=== PATIENT | female | born 1975 | race Caucasian/White ===

== ENCOUNTER 2017-01-11 00:19 | Inpatient (IN) | payer OTHER ==
--- NOTE | 2017-01-11 00:30 | PDOC ---
History of Present Illness - General Chief Complaint: Chest Pain Stated Complaint: GERD Time Seen by Provider: 01/11/17 00:21 - History of Present Illness Initial Comments: This 41-year-old woman with a history of epigastric pain intermittently for the last year(has been taking Prilosec/Pepcid for that period of time) presents with 1 day history of more severe epigastric pain. 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 She has had no follow-up with general doctor or director non profit. This morning, she forgot to take her medications. She began to have epigastric discomfort and subsequently took her medications in mid morning. Despite this, she continued to have pain and developed nausea. She has vomited approximately 5 times throughout the day. She states that she has had no coffee ground or bright blood in her emesis. There has been no diarrhea, passing normal bowel movement this morning. She describes the pain as steady from mid upper epigastrium radiating to mid back. Patient notes that she had very similar severe pain while traveling one week ago ; she did not seek medical care and the pain eventually subsided. No history of gallbladder disease/pancreatitis. No history of intra-abdominal surgical procedures. Patient denies chest pain/shortness of breath/diaphoresis. No history of smoking or significant family history of coronary artery disease Patient denies alcohol use No history of HTN/DM/hyperlipidemia LMP currently Past History - Past Medical History Allergies/Adverse Reactions: Allergies Allergy/AdvReac Type Severity Reaction Status Date / Time No Known Allergies Allergy Unverified 01/11/17 00:26 Home Medications: Ambulatory Orders Famotidine [Pepcid] 20 mg PO DAILY 01/11/17 Omeprazole Magnesium [Prilosec] 20 mg PO DAILY 01/11/17 Review of Systems - Review of Systems Able to Perform ROS?: Yes Comments:: 12 point review of systems is negative except for what is noted in the history of present illness *Physical Exam - Physical Exam Comments: GENERAL: The patient is awake, alert, and fully oriented, in mild distress secondary to epigastric pain Vital signs as noted. HEAD: Normal with no signs of trauma. EYES: Pupils equal, round and reactive to light, extraocular movements intact, sclera anicteric, conjunctiva clear with no pallor. ENT: moist mucous membranes. Ears normal, nares patent, oropharynx clear without exudates. NECK: Normal range of motion, supple without lymphadenopathy, JVD, or masses. LUNGS: Breath sounds equal, clear to auscultation bilaterally. No wheeze/ crackles. HEART: Regular rate and rhythm, normal S1 and S2 without murmur or rub. ABDOMEN: Soft/nondistended. BS wnl.moderate epigastric tenderness. No guarding or rebound. No palpable masses. No hepatosplenomegaly. EXTREMITIES: Normal range of motion, no edema. No clubbing or cyanosis. No cords, erythema, or tenderness. NEUROLOGICAL: Cranial nerves II through XII grossly intact. Normal speech, normal gait. PSYCH: Normal mood, normal affect. SKIN: Warm, Dry, normal turgor, no rashes or lesions noted. twelve-lead electrocardiogram performed and interpreted : normal sinus rhythm at 81 bpm; incomplete right bundle branch block; otherwise, wave forms, intervals, axis normal. No evidence of acute ST or T wave abnormalities ED Treatment Course - LABORATORY CBC & Chemistry Diagram: 01/11/17 01:29 01/11/17 01:29 Progress Note - Progress Note Progress Note: CBC/chemistry profile/lipase/cardiac enzymes sent Patient given 40 mg Protonix IV/Zofran 4 mg IV/Pepcid 20 mg IV and 1 L normal saline intravenously. Patient asked for medication for pain and 1 g of acetaminophen given IV. Laboratory evaluation significant for lipase of 26,506; Chemistry profile shows normal electrolytes; BUN is 10 with a creatinine of 0.6. Random glucose is 180. Total bilirubin is 2.2; AST is 843/ALT 552/alkaline phosphatase 220 White blood cell count 11,200; remainder of CBC is essentially normal. Cardiac enzymes are not elevated. Clinical presentation most consistent with acute pancreatitis, likely of biliary origin. Abdominal/pelvic CT with contrast will be performed Dilaudid 1mg IV given for analgesia Medical Decision Making - Medical Decision Making 01/11/17 04:21 Abdominal /Pelvic CT performed. Patient reports some relief in pain but has persistent nausea(She has not vomited since presenting to ER) Additional 4mg Zofran IV given IV NS continues(1200ml thus far) 01/11/17 04:51 CT interpreted by Imaging system consultant: Distended gallbladder with abnormal GB wall thickening Moderate peripancreatic fluid Dilation of CBD(7mm) Results discussed with patient who understands and agrees to plan for admission Because the patient had only minimal elevation of WBC and no fever, although gallbladder wall is thickened,antibiotics will not be given at this time 01/11/17 05:[address] Tolliver of [facility] Patient will be admitted to Med/Surg here . Lactic Acid level will be drawn. 01/11/17 06:15 pCXR shows no evidence of acute disease *DC/Admit/Observation/Transfer Diagnosis at time of Disposition: Acute biliary pancreatitis - Discharge Dispostion Condition at time of disposition: Stable Admit: Yes
[2017-01-11] MEDS ORDERED: ONDANSETRON 4 MG/2 ML VIAL IVPUSH ONE ×2 (01:13→04:19)
[2017-01-11] MEDS ORDERED: FAMOTIDINE 20 MG/50 ML IVPB 50 ML IVPB ONE ×2 (01:14→01:25)
[2017-01-11] MEDS ORDERED: PANTOPRAZOLE SODIUM 40 MG in SODIUM CHLORIDE 100 ML IVPB ONE (01:15)
[2017-01-11] MEDS ORDERED: SODIUM CHLORIDE 1,000 ML IV STA ×2 (01:15→03:00)
[2017-01-11] MEDS ORDERED: ONDANSETRON 4 MG/2 ML VIAL ONE ×2 (01:15→04:21)
[2017-01-11] MEDS ORDERED: PANTOPRAZOLE SODIUM 40 MG VIAL ONE (01:25)
[2017-01-11] MEDS ORDERED: ACETAMINOPHEN 1000 MG/100 ML VIAL (NON FORMULARY) IVPB ONE (02:03)
[2017-01-11] MEDS ORDERED: ACETAMINOPHEN INJECTION 100 ML IVPB ONE (02:04)
[2017-01-11 02:21] LABS: BASOPHIL 0.1 % (0-2.0); MCH 27.7 pg (25.7-33.7); MCHC 33.8 g/dl (32.0-36.0); MEAN PLT VOLUME 10.4 fl (7.5-11.1); NEUTROPHILS 89.4 % (42.8-82.8); PLATELET COUNT 209 K/MM3 (134-434); RDW 12.7 % (11.6-15.6); WHITE BLOOD COUNT 11.2 K/mm3 (4.0-10.0)
[2017-01-11 02:32] LABS: ALK PHOS 220 U/L (45-117); ANION GAP 11 (8-16); BILIRUBIN,TOTAL 2.2 mg/dL (0.2-1.0); CALCIUM 9.1 mg/dL (8.5-10.1); CO2 27 mmol/L (21-32); CREATININE 0.7 mg/dL (0.55-1.02); GLUCOSE,RANDOM 180 mg/dL (74-106); TOT PROT 7.2 g/dl (6.4-8.2); TROPONIN I < 0.02 ng/ml (0.00-0.05)
[2017-01-11 02:44] LABS: SGOT/AST 843 U/L (15-37); SGPT/ALT 552 U/L (12-78)
[2017-01-11] MEDS ORDERED: HYDROmorphone HCL CARPU-JECT 1 MG/1 ML DISP.SYRIN IVPUSH ONE (03:00)
[2017-01-11] MEDS ORDERED: HYDROmorphone HCL CARPU-JECT 2 MG/1 ML DISP.SYRIN ONE (03:03)
[2017-01-11] MEDS ORDERED: SODIUM CHLORIDE 1,000 ML IV SCH (05:45)
[2017-01-11 06:36] LABS: URINE APPEARANCE CLEAR; URINE BILIRUBIN NEGATIVE (NEGATIVE); URINE COLOR YELLOW; URINE GLUCOSE (UA) NEGATIVE (NEGATIVE); URINE KETONE NEGATIVE (NEGATIVE); URINE LEUK ESTERASE NEGATIVE (NEGATIVE); URINE NITRITE NEGATIVE (NEGATIVE); URINE PROTEIN NEGATIVE (NEGATIVE); URINE UROBILINOGEN NEGATIVE E.U./dl (0.2-1.0)
[2017-01-11 06:38] LABS: URINE BLOOD 1+ (NEGATIVE)
[2017-01-11 06:39] LABS: URINE MUCUS RARE; URINE RBC 26 /hpf (0-3); URINE WBC 5 /hpf (3-5)
[2017-01-11 07:18] LABS: INR 1.28 (0.82-1.09); PROTHROMBIN TIME (PATIENT) 14.1 SEC (9.98-11.88)
[2017-01-11 07:54] VITALS: BMI 26.4
[2017-01-11] MEDS: HYDROmorphone HCL CARPU-JECT 1 MG/1 ML DISP.SYRIN IVPUSH PRN ×2 (08:30→17:43)
[2017-01-11] MEDS: ONDANSETRON 4 MG/2 ML VIAL IVPB PRN ×3 (08:30→17:40)
--- NOTE | 2017-01-11 10:16 | HP ---
[id number] 4d patient is a 41 y/o female with no siginificant past medical history. She reports intermittent episodes of epigastric pain since last year. 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 However, yesterday, 01/10/17, she developed epigastric pain with 5 episodes of vomiting and sought evaluation in the emergency department . ER course was notable for: (1) ct scan of abdomen with contrast, peripancreatic fluid/edema consistent with acute pancreatitis no abscess or pseudocyst, slight thickening gallbladder with trace pericholecystic fluid prominent CBD (2)lipase 42387 (3)LFTs 843/552 Recent Travel: none PAST MEDICAL HISTORY: none PAST SURGICAL HISTORY: none Social History: resides at home, employed as a pharmacist Smoking:none Alcohol:none Drugs: none Family History: mother HTN father, NIDDM Allergies No Known Allergies Allergy (Unverified 01/11/17 00:26) HOME MEDICATIONS: Home Medications Medication Instructions Recorded Famotidine [Pepcid] 20 mg PO DAILY 01/11/17 Omeprazole Magnesium [Prilosec] 20 mg PO DAILY 01/11/17 REVIEW OF SYSTEMS CONSTITUTIONAL: Present: generalized weakness Absent: fever, chills, diaphoresis,, malaise, loss of appetite, weight change HEENT: Absent: rhinorrhea, nasal congestion, throat pain, throat swelling, difficulty swallowing, mouth swelling, ear pain, eye pain, visual changes CARDIOVASCULAR: Absent: chest pain, syncope, palpitations, irregular heart rate, lightheadedness , peripheral edema RESPIRATORY: Absent: cough, shortness of breath, dyspnea with exertion, orthopnea, wheezing, stridor, hemoptysis GASTROINTESTINAL: Present: nausea, vomiting, epigastric pain Absent: abdominal distension, , diarrhea, constipation, melena, hematochezia GENITOURINARY: Absent: dysuria, frequency, urgency, hesitancy, hematuria, flank pain, genital pain MUSCULOSKELETAL: Absent: myalgia, arthralgia, joint swelling, back pain, neck pain SKIN: Absent: rash, itching, pallor HEMATOLOGIC/IMMUNOLOGIC: Absent: easy bleeding, easy bruising, lymphadenopathy, frequent infections ENDOCRINE: Absent: unexplained weight gain, unexplained weight loss, heat intolerance, cold intolerance NEUROLOGIC: Absent: headache, focal weakness or paresthesias, dizziness, unsteady gait, seizure, mental status changes, bladder or bowel incontinence PSYCHIATRIC: Absent: anxiety, depression, suicidal or homicidal ideation, hallucinations. PHYSICAL EXAMINATION Vital Signs - 24 hr 01/11/17 07:38 Temperature 98.0 F Pulse Rate 83 Respiratory 20 Rate Blood Pressure 110/82 GENERAL: Awake, alert, and fully oriented, anxious . HEAD: Normal with no signs of trauma. EYES: Pupils equal, round and reactive to light, extraocular movements intact, sclera anicteric, conjunctiva clear. No lid lag. EARS, NOSE, THROAT: Ears normal, nares patent, oropharynx clear without exudates. Moist mucous membranes. NECK: Normal range of motion, supple without lymphadenopathy, JVD, or masses. LUNGS: Breath sounds equal, clear to auscultation bilaterally. No wheezes, and no crackles. No accessory muscle use. HEART: Regular rate and rhythm, normal S1 and S2 without murmur, rub or gallop. ABDOMEN: Soft, nontender, not distended, hypoactive bowel sounds, no guarding, no rebound, no masses. No hepatomegaly or splenomegaly. MUSCULOSKELETAL: Normal range of motion at all joints. No bony deformities or tenderness. No CVA tenderness. UPPER EXTREMITIES: 2+ pulses, warm, well-perfused. No cyanosis. No clubbing. Cap refill <2 seconds. No peripheral edema. LOWER EXTREMITIES: 2+ pulses, warm, well-perfused. No calf tenderness. No peripheral edema. NEUROLOGICAL: Cranial nerves II-XII intact. Normal speech. Normal gait. PSYCHIATRIC: Cooperative. Good eye contact. Appropriate mood and affect. SKIN: Warm, dry, normal turgor, no rashes or lesions noted. ASSESSMENT/PLAN: 1) GI pancreatitis -elevated lipase, likely secondary to gallstone pancreatitis, CT scan of abd/ pelvis w/contrast reviewed, MRCP ordered - concern for acute cholecystitis, start rocephin and flagyl - continue IVF, trend lipase and LFTs - appreciate GI and surgery input f/e/n - ivf - npo - replete lytes prn ppx - scd - protoonix - oob dispo: requires inpatient care Visit type - Emergency Visit Emergency Visit: Yes ED Registration Date: 01/11/17 Care time: The patient presented to the Emergency Department on the above date and was hospitalized for further evaluation of their emergent condition. - New Patient This patient is new to me today: Yes Date on this admission: 01/11/17 - Critical Care Critical Care patient: No
[2017-01-11] MEDS: PANTOPRAZOLE SODIUM 100 ML IVPB SCH (10:25)
[2017-01-11] MEDS ORDERED: DEXTROSE 5%-0.45% SALINE 1,000 ML IV SCH (10:30)
--- NOTE | 2017-01-11 11:02 | EKG ---
Test Reason : Blood Pressure : / mmHG Vent. Rate : 081 BPM Atrial Rate : 081 BPM P-R Int : 116 ms QRS Dur : 116 ms QT Int : 410 ms P-R-T Axes : 050 018 -04 degrees QTc Int : 476 ms NORMAL SINUS RHYTHM POSSIBLE LEFT ATRIAL ENLARGEMENT RIGHT BUNDLE BRANCH BLOCK NO PREVIOUS ECGS AVAILABLE Confirmed by JUDE CHIN MD ([id number]) on 01/11/2017 11:02:02 AM Referred By: ANGI Confirmed By:JUDE CHIN MD
[2017-01-11] MEDS: HEPARIN NA (PORCINE) 5,000 UNITS/ML 1ML VIAL SQ SCH ×2 (11:46→17:40)
[2017-01-11 14:40] LABS: BASOPHIL 0.3 % (0-2.0); EOSINOPHIL 0.2 % (0-4.5); MCH 27.5 pg (25.7-33.7); MCHC 33.8 g/dl (32.0-36.0); MEAN CELL VOLUME 81.4 fl (80-96); MEAN PLT VOLUME 9.3 fl (7.5-11.1); NEUTROPHILS 81.1 % (42.8-82.8); PLATELET COUNT 190 K/MM3 (134-434); RDW 12.1 % (11.6-15.6); WHITE BLOOD COUNT 10.4 K/mm3 (4.0-10.0)
[2017-01-11] MEDS: cefTRIAXone 1 GM/50 ML BAG (PRE-DOCKED) IVPB SCH (14:56)
[2017-01-11] MEDS: METRONIDAZOLE 500 MG PREMIXED 100 ML IVPB SCH ×2 (14:56→17:55)
[2017-01-11 15:11] LABS: MAGNESIUM 2.1 mg/dL (1.8-2.4); PHOSPHOROUS 2.4 mg/dl (2.5-4.6)
[2017-01-11 15:44] LABS: ALBUMIN 3.4 g/dl (3.5-5.0); ALK PHOS 158 U/L (32-92); ANION GAP 4 (8-16); CALCIUM 8.1 mg/dl (8.4-10.2); CO2 24 mmol/L (22-28); CREATININE 0.6 mg/dl (0.6-1.3); GLUCOSE,RANDOM 125 mg/dl (74-106); SGOT/AST 261 U/L (10-42); SGPT/ALT 345 U/L (10-40); TOT PROT 5.8 g/dl (6.4-8.3)
--- NOTE | 2017-01-11 16:20 | CONSULT ---
Consult Consult Specialty:: Surgery Reason for Consultation:: Pancreatitis - History of Present Illness History of Present Illness: 41 female presents for abdominal pain Has had intermittent episodes of epigastric pain over the last year Self treated with prilosec and pepcid with some relief Pain became worse yesterday + Vomiting No fevers - History Source History Provided By: Patient, Medical Record Limitations to Obtaining History: No Limitations - Alcohol/Substance Use Hx Alcohol Use: No - Smoking History Smoking history: Never smoked Home Medications - Allergies Allergies/Adverse Reactions: Allergies Allergy/AdvReac Type Severity Reaction Status Date / Time No Known Allergies Allergy Unverified 01/11/17 00:26 - Home Medications Home Medications: Ambulatory Orders Famotidine [Pepcid] 20 mg PO DAILY 01/11/17 Omeprazole Magnesium [Prilosec] 20 mg PO DAILY 01/11/17 Family Disease History - Family Disease History Family History: Unremarkable Review of Systems - Review of Systems Constitutional: denies: Chills, Fever Neck: reports: No Symptoms Cardiovascular: denies: Chest Pain Respiratory: denies: Cough Gastrointestinal: reports: Abdominal Pain (Epigastric), Vomiting Neurological: denies: Change in LOC Pain Intensity: 6 Physical Exam Vital Signs: Vital Signs Temperature 97.6 F 01/11/17 14:47 Pulse Rate 95 H 01/11/17 14:47 Respiratory Rate 18 01/11/17 14:47 Blood Pressure 113/72 01/11/17 14:47 O2 Sat by Pulse Oximetry (%) 99 01/11/17 05:04 Constitutional: Yes: Calm, Mild Distress Neck: Yes: Supple Respiratory: Yes: Regular Gastrointestinal: Yes: Soft, Tenderness, Epigastrium. No: Tenderness, Rebound Neurological: Yes: Alert, Oriented Labs: CBC, BMP 01/11/17 14:30 01/11/17 15:33 Imaging - Results Cat Scan: Report Reviewed, Image Reviewed MRI: Report Reviewed, Image Reviewed Problem List - Problems (1) Acute biliary pancreatitis Code(s): K85.1 - BILIARY ACUTE PANCREATITIS * DO NOT USE * Assessment/Plan 41 female with gallbladder sludge and pancreatitis Gallstone pancreatitis No evidence of cholecystitis WBC 10 LFTs elevated Lipase 69104 MRCP limited- no CBD filling defect seen on the limited study NPO U/S Serial LFTs/lipase When lipase normalizes, will plan cholecystectomy
[2017-01-11] MEDS ORDERED: POTASSIUM PHOSPHATE 21 MM in SODIUM CHLORIDE 250 ML IVPB ONE (16:30)
[2017-01-11] MEDS: D5-NS + 20 MEQ KCL - 1,000 ML IV SCH (17:42)
[2017-01-11] MEDS ORDERED: ALPRAZolam 0.25 MG TABLET PO ONE (22:45)
[2017-01-12] MEDS: METRONIDAZOLE 500 MG PREMIXED 100 ML IVPB SCH ×2 (01:25→09:21)
[2017-01-12] MEDS: HEPARIN NA (PORCINE) 5,000 UNITS/ML 1ML VIAL SQ SCH ×3 (01:26→17:52)
[2017-01-12 08:06] LABS: BASOPHIL 0.4 % (0-2.0); EOSINOPHIL 1.3 % (0-4.5); MCH 28.4 pg (25.7-33.7); MEAN CELL VOLUME 83.7 fl (80-96); MEAN PLT VOLUME 10.3 fl (7.5-11.1); NEUTROPHILS 74.2 % (42.8-82.8); PLATELET COUNT 198 K/MM3 (134-434); WHITE BLOOD COUNT 8.9 K/mm3 (4.0-10.0)
[2017-01-12 08:25] LABS: ALBUMIN 3.6 g/dl (3.5-5.0); ALK PHOS 144 U/L (32-92); AMYLASE 179 U/L (25-125); ANION GAP 4 (8-16); BILIRUBIN,TOTAL 0.8 mg/dl (0.2-1.0); CALCIUM 8.7 mg/dl (8.4-10.2); CO2 26 mmol/L (22-28); CREATININE 0.6 mg/dl (0.6-1.3); GLUCOSE,RANDOM 131 mg/dl (74-106); PHOSPHOROUS 2.4 mg/dl (2.5-4.6); SGOT/AST 96 U/L (10-42); SGPT/ALT 247 U/L (10-40); TOT PROT 6.2 g/dl (6.4-8.3)
[2017-01-12] MEDS: cefTRIAXone 1 GM/50 ML BAG (PRE-DOCKED) IVPB SCH (09:20)
[2017-01-12] MEDS: PANTOPRAZOLE SODIUM 100 ML IVPB SCH (09:20)
[2017-01-12] MEDS ORDERED: ACETAMINOPHEN 1000 MG/100 ML VIAL (NON FORMULARY) IVPB ONE (09:25)
--- NOTE | 2017-01-12 09:26 | PN ---
[id number] with gallstone pancreatitis. Lipase trending down (138 today from 22632). Vital Signs Period Temp Pulse Resp BP Sys/Colón Pulse Ox Last 24 Hr 97.6 F-99.2 F 85-98 16-18 113-121/66-72 97-97 GENERAL: The patient is awake, alert, and fully oriented, in no acute distress. HEAD: Normal with no signs of trauma. EYES: PERRL, extraocular movements intact, sclera anicteric, conjunctiva clear. No ptosis. ENT: Ears normal, nares patent, oropharynx clear without exudates, moist mucous membranes. NECK: Trachea midline, full range of motion, supple. LUNGS: Breath sounds equal, clear to auscultation bilaterally, no wheezes, no crackles, no accessory muscle use. HEART: Regular rate and rhythm, S1, S2 without murmur, rub or gallop. ABDOMEN: Soft, nontender even to deep palpation, nondistended, normoactive bowel sounds, no guarding, no rebound, no hepatosplenomegaly, no masses. EXTREMITIES: 2+ pulses, warm, well-perfused, no edema. NEUROLOGICAL: Cranial nerves II through XII grossly intact. Normal speech, gait not observed. PSYCH: Normal mood, normal affect. SKIN: Warm, dry, normal turgor, no rashes or lesions noted Laboratory Results - last 24 hr 01/11/17 01/11/17 01/11/17 14:30 14:30 15:33 WBC 10.4 H RBC 4.09 Hgb 11.3 Hct 33.3 MCV 81.4 MCHC 33.8 RDW 12.1 Plt Count 190 MPV 9.3 Neutrophils % 81.1 Lymphocytes % 14.8 Monocytes % 3.6 L Eosinophils % 0.2 Basophils % 0.3 Sodium 133 L Potassium 3.4 L Chloride 105 Carbon Dioxide 24 Anion Gap 4 L BUN 7 Creatinine 0.6 Creat Clearance w eGFR > 60 POC Glucometer Random Glucose 125 H Calcium 8.1 L Phosphorus 2.4 L Magnesium 2.1 Total Bilirubin 1.0 AST 261 H ALT 345 H Alkaline Phosphatase 158 H Total Protein 5.8 L Albumin 3.4 L Total Amylase Lipase 910 H 01/11/17 01/12/17 01/12/17 16:26 07:45 07:45 WBC 8.9 RBC 4.19 Hgb 11.9 Hct 35.1 MCV 83.7 MCHC 34.0 RDW 12.0 Plt Count 198 MPV 10.3 D Neutrophils % 74.2 Lymphocytes % 18.6 D Monocytes % 5.5 Eosinophils % 1.3 D Basophils % 0.4 Sodium 136 Potassium 3.9 Chloride 106 Carbon Dioxide 26 Anion Gap 4 L BUN 5 L D Creatinine 0.6 Creat Clearance w eGFR > 60 POC Glucometer 88 Random Glucose 131 H Calcium 8.7 Phosphorus 2.4 L Magnesium 2.0 Total Bilirubin 0.8 AST 96 H D ALT 247 H D Alkaline Phosphatase 144 H Total Protein 6.2 L Albumin 3.6 Total Amylase 179 H Lipase 138 H Active Medications Generic Name Dose Route Start Last Admin Trade Name Freq PRN Reason Stop Dose Admin Ceftriaxone Sodium 1 gm 01/11/17 14:30 01/12/17 09:20 Rocephin 1gm Ivpb (Pre-Docked) IVPB 01/18/17 14:29 1 gm DAILY DAWNA Administration Protocol Heparin Sodium (Porcine) 5,000 unit 01/11/17 10:00 01/12/17 09:20 Heparin - SQ Not Given Q8H-IV DAWNA Hydromorphone HCl 0.5 mg 01/11/17 05:38 01/11/17 17:43 Dilaudid Injection - IVPUSH 0.5 mg Q4H PRN Administration PAIN Pantoprazole Sodium 100 mls @ 200 mls/hr 01/11/17 10:30 01/12/17 09:20 Protonix 40mg Ivpb (Pre-Docked) IVPB 200 mls/hr DAILY DAWNA Administration Metronidazole 100 mls @ 100 mls/hr 01/11/17 14:30 01/12/17 09:21 Flagyl 500mg Premixed Ivpb - IVPB 100 mls/hr Q8H-IV DAWNA Administration Dextrose/Sodium Chloride 1,000 mls @ 125 mls/hr 01/11/17 16:45 01/11/17 17:42 Dextrose 5%-Normal Saline+20 Meq Kcl - IV 125 mls/hr ASDIR DAWNA Administration Ondansetron HCl 4 mg 01/11/17 05:38 01/11/17 17:40 Zofran Injection IVPB 4 mg Q6H PRN Administration NAUSEA ASSESSMENT/PLAN: 41 year old female with gallstone pancreatitis. 1. GI: Gallstone pancreatitis -No evidence of cholecystitis; will dc abx -WBC 8.9 -LFTs and lipase both trending down -MRCP limited- no CBD filling defect seen on the limited study -Remains NPO -Still in pain; requesting IV Tylenol today -Surgical consult appreciated-->plan for cholecystectomy 2. F/E/N -Mild hypokalemia; continue D5NS +KCl -NPO 3. Ppx -OOB -Sqh DISPO: Requires continued inpatient care. Patient is unsure whether she wants to have her cholecystectomy here. Visit type - Emergency Visit Emergency Visit: Yes ED Registration Date: 01/11/17 Care time: The patient presented to the Emergency Department on the above date and was hospitalized for further evaluation of their emergent condition. - New Patient This patient is new to me today: Yes Date on this admission: 02/10/17 - Critical Care Critical Care patient: No
--- NOTE | 2017-01-12 13:04 | PN ---
Progress Note (short form) - Note Progress Note: No acute events Pain improved Lipase significantly improved AVSS Abd soft CBC,CMP WBC 8.9 K/mm3 (4.0-10.0) 01/12/17 07:45 RBC 4.19 M/mm3 (3.60-5.2) 01/12/17 07:45 Hgb 11.9 GM/dl (10.7-15.3) 01/12/17 07:45 Hct 35.1 % (32.4-45.2) 01/12/17 07:45 MCV 83.7 fl (80-96) 01/12/17 07:45 MCHC 34.0 g/dl (32.0-36.0) 01/12/17 07:45 RDW 12.0 % (11.6-15.6) 01/12/17 07:45 Plt Count 198 K/MM3 (134-434) 01/12/17 07:45 MPV 10.3 fl (7.5-11.1) D 01/12/17 07:45 Neutrophils % 74.2 % (42.8-82.8) 01/12/17 07:45 Lymphocytes % 18.6 % (8-40) D 01/12/17 07:45 Monocytes % 5.5 % (3.8-10.2) 01/12/17 07:45 Eosinophils % 1.3 % (0-4.5) D 01/12/17 07:45 Basophils % 0.4 % (0-2.0) 01/12/17 07:45 Sodium 136 mmol/L (136-145) 01/12/17 07:45 Potassium 3.9 mmol/L (3.5-5.1) 01/12/17 07:45 Chloride 106 mmol/L (98-107) 01/12/17 07:45 Carbon Dioxide 26 mmol/L (22-28) 01/12/17 07:45 Anion Gap 4 (8-16) L 01/12/17 07:45 BUN 5 mg/dl (7-18) L D 01/12/17 07:45 Creatinine 0.6 mg/dl (0.6-1.3) 01/12/17 07:45 Creat Clearance w eGFR > 60 (>60) 01/12/17 07:45 POC Glucometer 88 UNITS (()) 01/11/17 16:26 Random Glucose 131 mg/dl (74-106) H 01/12/17 07:45 Lactic Acid 1.577 mmol/L (0.4-2.0) 01/11/17 05:35 Calcium 8.7 mg/dl (8.4-10.2) 01/12/17 07:45 Phosphorus 2.4 mg/dl (2.5-4.6) L 01/12/17 07:45 Magnesium 2.0 mg/dL (1.8-2.4) 01/12/17 07:45 Total Bilirubin 0.8 mg/dl (0.2-1.0) 01/12/17 07:45 AST 96 U/L (10-42) H D 01/12/17 07:45 ALT 247 U/L (10-40) H D 01/12/17 07:45 Alkaline Phosphatase 144 U/L (32-92) H 01/12/17 07:45 Creatine Kinase 73 IU/L (26-192) 01/11/17 01:29 Troponin I < 0.02 ng/ml (0.00-0.05) 01/11/17 01:29 Total Protein 6.2 g/dl (6.4-8.3) L 01/12/17 07:45 Albumin 3.6 g/dl (3.5-5.0) 01/12/17 07:45 Total Amylase 179 U/L (25-125) H 01/12/17 07:45 Lipase 138 U/L (22-51) H 01/12/17 07:45 Clears IV fluids Explained risks and benefits of a laparoscopic possible open cholecystectomy Patient understands Deciding whether she would like to proceed with the surgery Problem List - Problems (1) Acute biliary pancreatitis Code(s): K85.1 - BILIARY ACUTE PANCREATITIS * DO NOT USE *
[2017-01-12] MEDS: D5-NS + 20 MEQ KCL - 1,000 ML IV SCH (16:39)
[2017-01-12] MEDS ORDERED: ZOLPIDEM TARTRATE 5 MG TABLET PO ONE (21:04)
[2017-01-13] MEDS: HEPARIN NA (PORCINE) 5,000 UNITS/ML 1ML VIAL SQ SCH ×3 (06:33→17:14)
--- NOTE | 2017-01-13 09:13 | PN ---
[id number] OBJECTIVE: Hospital day #3 for this 41 year old female admitted with gallstone pancreatitis. Lipase trending down (81 today from [address]2216). Vital Signs Period Temp Pulse Resp BP Sys/Colón Pulse Ox Last 24 Hr 98.3 F-99.7 F 79-86 17-18 104-121/58-71 99-99 GENERAL: The patient is awake, alert, and fully oriented, in no acute distress. EYES: PERRL, extraocular movements intact, sclera anicteric, conjunctiva clear. No ptosis. ENT: Ears normal, nares patent, oropharynx clear without exudates, moist mucous membranes. NECK: Trachea midline, full range of motion, supple. LUNGS: Breath sounds equal, clear to auscultation bilaterally, no wheezes, no crackles, no accessory muscle use. HEART: Regular rate and rhythm, S1, S2 without murmur, rub or gallop. ABDOMEN: Soft, mild tenderness in epigastrium to deep palpation, nondistended, normoactive bowel sounds, no guarding, no rebound, no hepatosplenomegaly, no masses. EXTREMITIES: 2+ pulses, warm, well-perfused, no edema. NEUROLOGICAL: Cranial nerves II through XII grossly intact. Normal speech, gait not observed. PSYCH: Tearful. Upset that parents are in [place]; does not want to worry them. SKIN: Warm, dry, normal turgor, no rashes or lesions noted Active Medications Generic Name Dose Route Start Last Admin Trade Name Freq PRN Reason Stop Dose Admin Heparin Sodium (Porcine) 5,000 unit 01/11/17 10:00 01/13/17 06:33 Heparin - SQ Not Given Q8H-IV DAWNA Hydromorphone HCl 0.5 mg 01/11/17 05:38 01/11/17 17:43 Dilaudid Injection - IVPUSH 0.5 mg Q4H PRN Administration PAIN Pantoprazole Sodium 100 mls @ 200 mls/hr 01/11/17 10:30 01/12/17 09:20 Protonix 40mg Ivpb (Pre-Docked) IVPB 200 mls/hr DAILY DAWNA Administration Dextrose/Sodium Chloride 1,000 mls @ 125 mls/hr 01/11/17 16:45 01/12/17 16:39 Dextrose 5%-Normal Saline+20 Meq Kcl - IV 125 mls/hr ASDIR DAWNA Administration Ondansetron HCl 4 mg 01/11/17 05:38 01/11/17 17:40 Zofran Injection IVPB 4 mg Q6H PRN Administration NAUSEA ASSESSMENT/PLAN: 41 year old female admitted with gallstone pancreatitis. 1. GI: Gallstone pancreatitis -No evidence of cholecystitis; abx dc'd yesterday -WBC 8.9 -LFTs and lipase both continuing to trend down -MRCP limited- no CBD filling defect seen on the limited study -Tolerating clears; NPO after midnight -For cholecystectomy with Dr. Harvey tomorrow 2. F/E/N -Hypokalemia, repleted -Continue D5NS 3. Ppx -OOB -Sqh DISPO: Requires continued inpatient care. For cholecystectomy tomorrow. Visit type - Emergency Visit Emergency Visit: Yes ED Registration Date: 01/11/17 Care time: The patient presented to the Emergency Department on the above date and was hospitalized for further evaluation of their emergent condition. - New Patient This patient is new to me today: Yes Date on this admission: 01/13/17 - Critical Care Critical Care patient: No
[2017-01-13 09:19] LABS: BASOPHIL 0.4 % (0-2.0); EOSINOPHIL 3.8 % (0-4.5); MCH 27.2 pg (25.7-33.7); MCHC 32.8 g/dl (32.0-36.0); MEAN PLT VOLUME 10.5 fl (7.5-11.1); NEUTROPHILS 61.5 % (42.8-82.8); PLATELET COUNT 189 K/MM3 (134-434); RDW 11.9 % (11.6-15.6); WHITE BLOOD COUNT 6.2 K/mm3 (4.0-10.0)
[2017-01-13 09:24] LABS: ALBUMIN 3.2 g/dl (3.5-5.0); ALK PHOS 111 U/L (32-92); ANION GAP 4 (8-16); BILIRUBIN,TOTAL 0.6 mg/dl (0.2-1.0); CALCIUM 8.6 mg/dl (8.4-10.2); CO2 25 mmol/L (22-28); CREATININE 0.6 mg/dl (0.6-1.3); GLUCOSE,RANDOM 135 mg/dl (74-106); SGOT/AST 31 U/L (10-42); SGPT/ALT 148 U/L (10-40); TOT PROT 5.6 g/dl (6.4-8.3)
[2017-01-13] MEDS: PANTOPRAZOLE SODIUM 100 ML IVPB SCH (09:53)
[2017-01-13] MEDS ORDERED: DEXTROSE 5%-NORMAL SALINE 1,000 ML IV SCH (15:15)
[2017-01-13] MEDS ORDERED: ZOLPIDEM TARTRATE 5 MG TABLET PO ONE (22:00)
[2017-01-14] MEDS: HEPARIN NA (PORCINE) 5,000 UNITS/ML 1ML VIAL SQ SCH (02:50)
--- NOTE | 2017-01-14 08:14 | PN ---
Physical Exam: SUBJECTIVE: Patient seen and examined, very anxious in regards to her upcoming surgery, pt reports intermittent epigastric discomfort, that resolves after protonix. OBJECTIVE: patient is a 41 y/o female with no significant past medical history. patient was admitted from the emergency department for gallstone pancreatis. Vital Signs Period Temp Pulse Resp BP Sys/Colón Pulse Ox Last 24 Hr 98.3 F-98.9 F 78-94 16-18 108-122/55-75 99-100 GENERAL: The patient is awake, alert, and fully oriented, anxious. HEAD: Normal with no signs of trauma. EYES: PERRL, extraocular movements intact, sclera anicteric, conjunctiva clear. No ptosis. ENT: Ears normal, nares patent, oropharynx clear without exudates, moist mucous membranes. NECK: Trachea midline, full range of motion, supple. LUNGS: Breath sounds equal, clear to auscultation bilaterally, no wheezes, no crackles, no accessory muscle use. HEART: Regular rate and rhythm, S1, S2 without murmur, rub or gallop. ABDOMEN: Soft, minimal epigastric tenderness, nondistended, hyperactive bernadine bowel sounds, no guarding, no rebound, no hepatosplenomegaly, no masses. EXTREMITIES: 2+ pulses, warm, well-perfused, no edema. NEUROLOGICAL: Cranial nerves II through XII grossly intact. Normal speech, gait not observed. PSYCH: Normal mood, normal affect. SKIN: Warm, dry, normal turgor, no rashes or lesions noted Laboratory Results - last 24 hr 01/13/17 01/13/17 07:00 07:00 WBC 6.2 D RBC 4.09 Hgb 11.1 Hct 34.0 MCV 83.0 MCHC 32.8 RDW 11.9 Plt Count 189 MPV 10.5 Neutrophils % 61.5 Lymphocytes % 27.7 D Monocytes % 6.6 Eosinophils % 3.8 D Basophils % 0.4 Sodium 136 Potassium 4.7 D Chloride 107 Carbon Dioxide 25 Anion Gap 4 L BUN 6 L Creatinine 0.6 Creat Clearance w eGFR > 60 Random Glucose 135 H Calcium 8.6 Total Bilirubin 0.6 D AST 31 D ALT 148 H D Alkaline Phosphatase 111 H D Total Protein 5.6 L Albumin 3.2 L Lipase 81 H Active Medications Generic Name Dose Route Start Last Admin Trade Name Freq PRN Reason Stop Dose Admin Heparin Sodium (Porcine) 5,000 unit 01/11/17 10:00 01/14/17 02:50 Heparin - SQ Not Given Q8H-IV DAWNA Hydromorphone HCl 0.5 mg 01/11/17 05:38 01/11/17 17:43 Dilaudid Injection - IVPUSH 0.5 mg Q4H PRN Administration PAIN Pantoprazole Sodium 100 mls @ 200 mls/hr 01/11/17 10:30 01/13/17 09:53 Protonix 40mg Ivpb (Pre-Docked) IVPB 200 mls/hr DAILY DAWNA Administration Dextrose/Sodium Chloride 1,000 mls @ 42 mls/hr 01/13/17 15:15 01/13/17 15:40 D5-Ns - IV 01/14/17 15:04 42 mls/hr ASDIR DAWNA Administration Ondansetron HCl 4 mg 01/11/17 05:38 01/11/17 17:40 Zofran Injection IVPB 4 mg Q6H PRN Administration NAUSEA IMAGING MRCP limited- no CBD filling defect seen on the limited study ultrasound of abd: cholelithasis, ? acute cholecystitis ct scan of abd/pelvis: peripancreatic fluid/edema consistent with acute pancreatitis no abscess or pseudocyst, slight thickening gallbladder with trace pericholecystic fluid prominent CBD ASSESSMENT/PLAN: 1. GI: Gallstone pancreatitis - lipase trended downward to 81, LFT's 31/148, (downward) - antibiotics discontinued, no evidence of acute cholecystitis - pending or today for cholecystectomy 2. F/E/N -IV fluids D5 NS @ 100ml/hr 3. Ppx -OOB - protonix -hold heparin pending or DISPO: Requires continued inpatient care. For cholecystectomy today . Visit type - Emergency Visit Emergency Visit: Yes ED Registration Date: 01/11/17 Care time: The patient presented to the Emergency Department on the above date and was hospitalized for further evaluation of their emergent condition. - New Patient This patient is new to me today: No - Critical Care Critical Care patient: No - Discharge Referral Referred to [facility] No
[2017-01-14 08:51] LABS: BASOPHIL 0.4 % (0-2.0); EOSINOPHIL 3.4 % (0-4.5); MCH 27.9 pg (25.7-33.7); MCHC 33.6 g/dl (32.0-36.0); MEAN CELL VOLUME 83.1 fl (80-96); MEAN PLT VOLUME 9.4 fl (7.5-11.1); NEUTROPHILS 61.8 % (42.8-82.8); PLATELET COUNT 224 K/MM3 (134-434); WHITE BLOOD COUNT 5.8 K/mm3 (4.0-10.0)
[2017-01-14 09:04] LABS: INR 1.23 (0.82-1.09); PROTHROMBIN TIME (PATIENT) 13.7 SEC (10.2-13.0)
[2017-01-14 09:09] LABS: ALBUMIN 3.7 g/dl (3.5-5.0); ALK PHOS 117 U/L (32-92); ANION GAP 5 (8-16); BILIRUBIN,TOTAL 0.7 mg/dl (0.2-1.0); CALCIUM 9.4 mg/dl (8.4-10.2); CO2 28 mmol/L (22-28); CREATININE 0.6 mg/dl (0.6-1.3); GLUCOSE,RANDOM 126 mg/dl (74-106); SGOT/AST 32 U/L (10-42); SGPT/ALT 126 U/L (10-40); TOT PROT 6.6 g/dl (6.4-8.3)
[2017-01-14] MEDS: PANTOPRAZOLE SODIUM 100 ML IVPB SCH (09:24)
[2017-01-14] MEDS ORDERED: DEXTROSE 5%-NORMAL SALINE 1,000 ML IV SCH (11:30)
[2017-01-14] MEDS ORDERED: MIDAZOLAM HCL 2 MG/2 ML SINGLE DOSE VIAL ONE (11:54)
[2017-01-14] MEDS ORDERED: LIDOCAINE HCL 2% 100 MG/5 ML DISP.SYRIN ONE (12:23)
[2017-01-14] MEDS ORDERED: ONDANSETRON 4 MG/2 ML VIAL ONE ×3 (12:29→14:35)
[2017-01-14] MEDS ORDERED: DEXAMETHASONE SOD PHOSPHATE 4 MG/1 ML VIAL ONE (12:29)
[2017-01-14] MEDS ORDERED: ceFAZolin SODIUM 1 GM VIAL ONE (12:32)
[2017-01-14] MEDS ORDERED: BUPIVACAINE HCL 0.25% 125 MG/50 ML VIAL ONE (12:59)
[2017-01-14] MEDS ORDERED: NEOSTIGMINE METHYLSULFATE 0.5 MG/ML - 10 ML MDV ONE (13:06)
[2017-01-14] MEDS ORDERED: GLYCOPYRROLATE 0.2 MG/1 ML VIAL ONE ×2 (13:06→13:12)
[2017-01-14] MEDS ORDERED: BUPIVACAINE HCL 0.25% 125 MG/50 ML VIAL INF ONE (13:10)
[2017-01-14] MEDS ORDERED: LACTATED RINGERS SOLUTION 1,000 ML IV SCH (13:30)
--- NOTE | 2017-01-14 14:15 | OP ---
Operative Note - Note: Operative Date: 01/14/17 Pre-Operative Diagnosis: Acute cholecystitis Operation: Laparoscopic cholecystectomy Post-Operative Diagnosis: Same as Pre-op Surgeon: José Miguel Harvey Dairy Consultant: Hardy Davidson Anesthesiologist/DIRECTOR REVENUE: Shanelle Phillips Anesthesia: General Specimens Removed: gall bladder Estimated Blood Loss (mls): 2 Blood Volume Replaced (mls): 800 Operative Report Dictated: Yes
[2017-01-14] MEDS ORDERED: FAMOTIDINE 20 MG/50 ML IVPB 50 ML IVPB ONE (15:13)
[2017-01-14] MEDS ORDERED: FAMOTIDINE 20 MG PREMIXED IVPB IVPB ONE (15:15)
[2017-01-14] MEDS ORDERED: OXYCODONE/APAP 5/325MG COMBO TABLET PO PRN (16:29)
[2017-01-14] MEDS: HYDROmorphone HCL CARPU-JECT 1 MG/1 ML DISP.SYRIN IVPB PRN ×2 (16:59→22:36)
[2017-01-15] MEDS: HYDROmorphone HCL CARPU-JECT 1 MG/1 ML DISP.SYRIN IVPB PRN (05:30)
--- NOTE | 2017-01-15 07:06 | SPEC ---
DATE OF OPERATION: 01/14/2017 SURGEON: José Miguel Harvey MD FIELD SERVICE SPECIALIST: ANSELMO Fernandes PREOPERATIVE DIAGNOSES: Gallstone pancreatitis. POSTOPERATIVE DIAGNOSES: Gallstone pancreatitis. ANESTHESIA: GET. PROCEDURE: Laparoscopic cholecystectomy. SPECIMEN: Gallbladder. ESTIMATED BLOOD LOSS: 5 mL. DRAINS: None. REASON FOR PROCEDURE: This is a 41-year-old female who presented to the hospital with abdominal pain. She was found to have evidence of pancreatitis with biliary etiology. After carefully observing her and watching her lipase trend towards normal, she was consented a laparoscopic, possible open, cholecystectomy. RISKS AND BENEFITS: The risks and benefits of a laparoscopic, possible open cholecystectomy were explained. These included bleeding, infection, hernia, GA, DVT, PE, injury to surrounding structures including the liver, colon, bowel, bile ducts, vessel injury, nerve injury, bile leak, and retained stones as some of the possible complications. The patient understood and signed informed consents. DESCRIPTION OF PROCEDURE: The patient was placed supine on the operating room table. The patient underwent general endotracheal intubation. The abdomen was prepped and draped in the usual sterile fashion. A timeout was performed. A periumbilical incision was made, and a 5-mm optical trocar was inserted under direct visualization with the laparoscope. Pneumoperitoneum was then established. Subsequently, a 5-mm trocar was placed in the subxiphoid area and two 5-mm trocars were placed in the right upper quadrant. The 5-mm trocar at the periumbilical region was removed and a 10-mm trocar was inserted. The patient was placed in reverse Trendelenburg, right side up position. The gallbladder was noted and was retracted cephalad and laterally. Any overlying omental adhesions were carefully dissected. The peritoneum was dissected using electrocautery. The cystic duct followed by the cystic artery were circumferentially dissected, clipped and transected. The gallbladder was removed off the liver bed using electrocautery. Hemostasis of the liver bed and surrounding area was attained using electrocautery. The gallbladder was placed in an EndoCatch bag. Copious irrigation and suction were performed until clear. The gallbladder was removed from the abdominal cavity. The fascia at the 10-mm trocar site was closed using a 0-Vicryl suture. All incision sites were irrigated and Marcaine was injected. Hemostasis of all incision sites was noted. All incision sites were closed using 4-0 Biosyn. Sterile dressings were applied. The patient tolerated the procedure well and was transferred to the recovery room in stable condition. Haleigh HAMMOND/[id number]
--- NOTE | 2017-01-15 08:50 | PN ---
[id number] [id number] trevin is a 41 y/o female with no significant past medical history. patient was admitted from the emergency department for gallstone pancreatis. patient is S/P lap cholecystectomy POD #1 Vital Signs Period Temp Pulse Resp BP Sys/Colón Pulse Ox Last 24 Hr 97.5 F-98.8 F 58-92 6-26 104-146/59-72 96-100 GENERAL: The patient is awake, alert, and fully oriented, in no acute distress. HEAD: Normal with no signs of trauma. EYES: PERRL, extraocular movements intact, sclera anicteric, conjunctiva clear. No ptosis. ENT: Ears normal, nares patent, oropharynx clear without exudates, moist mucous membranes. NECK: Trachea midline, full range of motion, supple. LUNGS: Breath sounds equal, clear to auscultation bilaterally, no wheezes, no crackles, no accessory muscle use. HEART: Regular rate and rhythm, S1, S2 without murmur, rub or gallop. ABDOMEN: Soft,tenderness noted to surgical sites, hyperactive bowel sounds, nondistended, laparoscopic incisions clean dry and intact no drainage noted, bowel sounds, no guarding, no rebound, no hepatosplenomegaly, no masses. EXTREMITIES: 2+ pulses, warm, well-perfused, no edema. NEUROLOGICAL: Cranial nerves II through XII grossly intact. Normal speech, steady gait. PSYCH: Normal mood, normal affect. SKIN: Warm, dry, normal turgor, no rashes or lesions noted Laboratory Results - last 24 hr CBC WBC 8.1 K/mm3 (4.0-10.0) D 01/15/17 07:00 RBC 4.12 M/mm3 (3.60-5.2) 01/15/17 07:00 Hgb 11.5 GM/dl (10.7-15.3) 01/15/17 07:00 Hct 34.3 % (32.4-45.2) 01/15/17 07:00 MCV 83.4 fl (80-96) 01/15/17 07:00 MCHC 33.6 g/dl (32.0-36.0) 01/15/17 07:00 RDW 12.0 % (11.6-15.6) 01/15/17 07:00 Plt Count 232 K/MM3 (134-434) 01/15/17 07:00 MPV 9.0 fl (7.5-11.1) 01/15/17 07:00 Neutrophils % 64.3 % (42.8-82.8) 01/15/17 07:00 Lymphocytes % 27.7 % (8-40) 01/15/17 07:00 Monocytes % 6.7 % (3.8-10.2) 01/15/17 07:00 Eosinophils % 0.6 % (0-4.5) D 01/15/17 07:00 Basophils % 0.7 % (0-2.0) 01/15/17 07:00 CMP Sodium 135 mmol/L (136-145) L 01/15/17 08:45 Potassium 4.3 mmol/L (3.5-5.1) 01/15/17 08:45 Chloride 100 mmol/L (98-107) 01/15/17 08:45 Carbon Dioxide 29 mmol/L (22-28) H 01/15/17 08:45 Anion Gap 6 (8-16) L 01/15/17 08:45 BUN 9 mg/dl (7-18) D 01/15/17 08:45 Creatinine 0.7 mg/dl (0.6-1.3) 01/15/17 08:45 Creat Clearance w eGFR > 60 (>60) 01/15/17 08:45 POC Glucometer 88 UNITS (()) 01/11/17 16:26 Random Glucose 118 mg/dl (74-106) H 01/15/17 08:45 Lactic Acid 1.577 mmol/L (0.4-2.0) 01/11/17 05:35 Calcium 9.2 mg/dl (8.4-10.2) 01/15/17 08:45 Phosphorus 4.1 mg/dl (2.5-4.6) 01/15/17 08:45 Magnesium 1.9 mg/dL (1.8-2.4) 01/15/17 08:45 Total Bilirubin 0.5 mg/dl (0.2-1.0) D 01/15/17 08:45 AST 47 U/L (10-42) H D 01/15/17 08:45 ALT 98 U/L (10-40) H D 01/15/17 08:45 Alkaline Phosphatase 97 U/L (32-92) H 01/15/17 08:45 Creatine Kinase 73 IU/L (26-192) 01/11/17 01:29 Troponin I < 0.02 ng/ml (0.00-0.05) 01/11/17 01:29 Total Protein 6.2 g/dl (6.4-8.3) L 01/15/17 08:45 Albumin 3.4 g/dl (3.5-5.0) L 01/15/17 08:45 Total Amylase 179 U/L (25-125) H 01/12/17 07:45 Lipase 81 U/L (22-51) H 01/13/17 07:00 Active Medications Generic Name Dose Route Start Last Admin Trade Name Freq PRN Reason Stop Dose Admin Enoxaparin Sodium 40 mg 01/15/17 10:00 Lovenox - SQ DAILY DAWNA Fentanyl 50 mcg 01/14/17 14:18 01/14/17 15:20 Sublimaze Injection - IVPUSH 01/17/17 14:19 50 mcg [id number] PRN Administration PAIN Hydromorphone HCl 1 mg 01/14/17 16:28 01/15/17 05:30 Dilaudid Injection - IVPB 1 mg Q4H PRN Administration PAIN Pantoprazole Sodium 100 mls @ 200 mls/hr 01/11/17 10:30 01/14/17 09:24 Protonix 40mg Ivpb (Pre-Docked) IVPB 200 mls/hr DAILY DAWNA Administration Dextrose/Sodium Chloride 1,000 mls @ 100 mls/hr 01/14/17 11:30 D5-Ns - IV ASDIR DAWNA Ondansetron HCl 4 mg 01/11/17 05:38 01/11/17 17:40 Zofran Injection IVPB 4 mg Q6H PRN Administration NAUSEA Oxycodone/Acetaminophen 2 combo 01/14/17 16:29 Percocet 5/325 - PO Q4H PRN PAIN LEVEL 6-10 ASSESSMENT/PLAN: IMAGING MRCP limited- no CBD filling defect seen on the limited study ultrasound of abd: cholelithasis, ? acute cholecystitis ct scan of abd/pelvis: peripancreatic fluid/edema consistent with acute pancreatitis no abscess or pseudocyst, slight thickening gallbladder with trace pericholecystic fluid prominent CBD ASSESSMENT/PLAN: 1. GI: Gallstone pancreatitis/s/p lap cholecystectomy postop day #1 - lipase trended downward to 81, LFT's 47/81, (downward) - antibiotics discontinued, no evidence of acute cholecystitis - when necessary pain medication, incentive spirometer, encourage frequent ambulation 2. F/E/N - decrease IV fluids D5 NS @ 75ml/hr until able to tolerate po liquids 3. Ppx -OOB - protonix - lovenox DISPO: Requires continued inpatient care. start tomorrow if tolerating by mouth fluids . Visit type - Emergency Visit Emergency Visit: Yes ED Registration Date: 01/11/17 Care time: The patient presented to the Emergency Department on the above date and was hospitalized for further evaluation of their emergent condition. - New Patient This patient is new to me today: No - Critical Care Critical Care patient: No - Discharge Referral Referred to [facility] No
[2017-01-15 09:14] LABS: BASOPHIL 0.7 % (0-2.0); EOSINOPHIL 0.6 % (0-4.5); MCHC 33.6 g/dl (32.0-36.0); MEAN CELL VOLUME 83.4 fl (80-96); NEUTROPHILS 64.3 % (42.8-82.8); PLATELET COUNT 232 K/MM3 (134-434); WHITE BLOOD COUNT 8.1 K/mm3 (4.0-10.0)
[2017-01-15] MEDS: PANTOPRAZOLE SODIUM 100 ML IVPB SCH (09:50)
[2017-01-15 09:54] LABS: ALBUMIN 3.4 g/dl (3.5-5.0); ALK PHOS 97 U/L (32-92); ANION GAP 6 (8-16); BILIRUBIN,TOTAL 0.5 mg/dl (0.2-1.0); CALCIUM 9.2 mg/dl (8.4-10.2); CO2 29 mmol/L (22-28); CREATININE 0.7 mg/dl (0.6-1.3); GLUCOSE,RANDOM 118 mg/dl (74-106); MAGNESIUM 1.9 mg/dL (1.8-2.4); PHOSPHOROUS 4.1 mg/dl (2.5-4.6); SGOT/AST 47 U/L (10-42); SGPT/ALT 98 U/L (10-40); TOT PROT 6.2 g/dl (6.4-8.3)
[2017-01-15] MEDS: oxyCODONE HCL 5 MG TABLET PO PRN ×4 (10:04→22:29)
[2017-01-15] MEDS: ENOXAPARIN NA (PORCINE) 40 MG/0.4 ML DISP.SYRIN SQ SCH (10:06)
[2017-01-15] MEDS ORDERED: DEXTROSE 5%-NORMAL SALINE 1,000 ML IV SCH (10:37)
[2017-01-15] MEDS: DOCUSATE SODIUM 100 MG CAPSULE (FP) PO SCH ×2 (13:36→22:28)
--- NOTE | 2017-01-15 14:07 | PN ---
Progress Note (short form) - Note Progress Note: POD 1 Laparoscopic cholecystectomy No acute events Pain well controlled No nausea/vomiting AVSS Abd soft, incisional tenderness CBC, BMP 01/15/17 07:00 01/15/17 08:45 Doing well Can be discharged home from surgical standpoint F/U in 2 weeks No lifting more than 10 pounds x 2 months Problem List - Problems (1) Acute biliary pancreatitis Code(s): K85.1 - BILIARY ACUTE PANCREATITIS * DO NOT USE *
--- NOTE | 2017-01-15 14:34 | PN ---
Progress Note (short form) - Note Progress Note: 41F POD1 s/p laparoscopic cholecystectomy under [facility]-ETT doing well. Pt states that pain is well controlled, AVSS, reports no anesthetic complications.
[2017-01-15] MEDS ORDERED: DOCUSATE SODIUM 100 MG CAPSULE (FP) PO ONE (14:45)
[2017-01-15] MEDS ORDERED: ZOLPIDEM TARTRATE 5 MG TABLET PO PRN (14:46)
[2017-01-16] MEDS: oxyCODONE HCL 5 MG TABLET PO PRN ×3 (03:06→14:08)
[2017-01-16] MEDS: DOCUSATE SODIUM 100 MG CAPSULE (FP) PO SCH ×2 (06:09→14:09)
[2017-01-16 06:20] VITALS: TEMP 98.3
[2017-01-16 09:35] LABS: BASOPHIL 0.4 % (0-2.0); MCH 28.1 pg (25.7-33.7); MCHC 33.7 g/dl (32.0-36.0); MEAN CELL VOLUME 83.5 fl (80-96); MEAN PLT VOLUME 9.6 fl (7.5-11.1); PLATELET COUNT 252 K/MM3 (134-434); RDW 12.3 % (11.6-15.6); WHITE BLOOD COUNT 7.2 K/mm3 (4.0-10.0)
[2017-01-16 09:42] LABS: ALBUMIN 3.7 g/dl (3.5-5.0); ALK PHOS 94 U/L (32-92); ANION GAP 9 (8-16); BILIRUBIN,TOTAL 0.7 mg/dl (0.2-1.0); CALCIUM 9.2 mg/dl (8.4-10.2); CO2 30 mmol/L (22-28); CREATININE 0.7 mg/dl (0.6-1.3); GLUCOSE,RANDOM 126 mg/dl (74-106); SGOT/AST 32 U/L (10-42); SGPT/ALT 79 U/L (10-40); TOT PROT 6.5 g/dl (6.4-8.3)
[2017-01-16] MEDS: ENOXAPARIN NA (PORCINE) 40 MG/0.4 ML DISP.SYRIN SQ SCH ×2 (11:08→11:11)
[2017-01-16] MEDS: PANTOPRAZOLE SODIUM 100 ML IVPB SCH (11:09)
[2017-01-16] MEDS: MAGNESIUM CITRATE 300 ML BOTTLE PO ONE (11:09)
[2017-01-16 14:01] VITALS: BP 124/70; PULSE 102
--- NOTE | 2017-01-16 14:18 | PATH ---
Surgical Pathology Report Patient Name: JAMES SANCHES Med. Rec. #: [id number] /Age/Gender: 1975 (Age: 41) / F Account: [id number] Location: [facility] Taken: 01/14/2017 Received: 01/14/2017 Reported: 01/16/2017 Physicians: José Miguel Harvey M.D. Specimen(s) Received GALLBLADDER Clinical History Cholelithiasis, pancreatitis Final Diagnosis GALLBLADDER, CHOLECYSTECTOMY: CHRONIC CHOLECYSTITIS AND CHOLELITHIASIS. ONE BENIGN LYMPH NODE. Electronically Signed Augusto Aleman M.D. Gross Description Received in formalin, labeled "gallbladder" is a 7.0 x 2.5 x 2.5 cm gallbladder with a 0.2 cm in length portion of cystic duct attached. There is a 1.0 cm periductal lymph node present. The outer surface is fuentes green and varies from smooth to shaggy. The lumen contains green, tenacious bile as well as numerous yellow, irregular choleliths averaging 0.3 cm in greatest dimension. The mucosa is dark green and velvety. The wall of the gallbladder averages 0.1 cm in thickness. Spray Gun Sizer sections are submitted in one cassette. 01/15/201701/15/2017
== END 2017-01-16 16:45 | disposition home or self-care (01) | DRG 419 ==
LOC: FER 00:19 → FM/S 05:58
PROVIDERS: ADMIT Internal Medicine; ATTEND Nurse Practitioner Family
PROC: 0FT44ZZ Resection of Gallbladder, Percutaneous Endoscopic Approach (ICD-10-PCS; principal; 2017-01-14 11:30)
DX: K85.10 Biliary acute pancreatitis without necrosis or infection (principal); E87.6 Hypokalemia; K21.9 Gastro-esophageal reflux disease without esophagitis
CPT/HCPCS: 36415; 71010-TC; 74020-TC; 74177-TC; 74182-TC; 76705-TC; 80053; 81003; 81015; 82150; 82550; 83605; 83690; 83735; 84100; 84484; 84703; 85025; 85610; 86850; 86900; 86901; 88304-TC; 93005; 94010; 94760; 99284-25; C1887; J1644

== ENCOUNTER 2017-02-02 11:11 | Inpatient (IN) | payer OTHER ==
--- NOTE | 2017-02-02 11:13 | PDOC ---
History of Present Illness - General Chief Complaint: Pain, Acute Stated Complaint: EPIGASTRIC PAIN RADITES TO BACK Time Seen by Provider: 02/02/17 11:13 History Source: Patient Exam Limitations: No Limitations - History of Present Illness Initial Comments: 02/02/17 11:18 The patient is a 41-year-old female with a significant past medical history of GERD, status post recent cholecystectomy 19 days ago (due to gall stone pancreatitis), who presents to the emergency department complaining of abdominal pain that began this morning. It is epigastric and radiates to the back. It is constant. It is of moderate intensity. She reports nausea. She denies vomiting, diarrhea. She denies fever, chills, sweats. She denies discharge from the wound. 02/02/17 11:27 Past History - Past Medical History Allergies/Adverse Reactions: Allergies Allergy/AdvReac Type Severity Reaction Status Date / Time No Known Allergies Allergy Verified 02/02/17 11:15 Home Medications: Ambulatory Orders Pantoprazole Sodium [Protonix] 40 mg PO DAILY #30 tablet. 01/16/17 Docusate Sodium [Colace -] 100 mg PO PRN PRN 02/02/17 GI Disorders: Yes (GERD-CHUY WITH STRESS) - Psycho/Social/Smoking Cessation Hx Anxiety: No Suicidal Ideation: No Smoking History: Never smoked Hx Alcohol Use: No Drug/Substance Use Hx: No Substance Use Type: None Hx Substance Use Treatment: No Review of Systems - Review of Systems Comments:: 02/02/17 11:18 CONSTITUTIONAL: Absent: fever, chills, diaphoresis, generalized weakness, malaise, loss of appetite HEENT: Absent: rhinorrhea, nasal congestion, throat pain, throat swelling, difficulty swallowing, mouth swelling, ear pain, eye pain, visual Changes CARDIOVASCULAR: Absent: chest pain, loss of consciousness, palpitations, irregular heart rate, peripheral edema RESPIRATORY: Absent: cough, shortness of breath, dyspnea with exertion, orthopnea, wheezing, stridor, hemoptysis GASTROINTESTINAL: Present: see HPI Absent: abdominal distension, nausea, vomiting, diarrhea, constipation, melena, hematochezia GENITOURINARY: Absent: dysuria, frequency, urgency, hesitancy, hematuria, flank pain, genital pain MUSCULOSKELETAL: Absent: myalgia, arthralgia, joint swelling SKIN: Absent: rash, itching, pallor HEMATOLOGIC/IMMUNOLOGIC: Absent: easy bleeding, easy bruising, lymphadenopathy, frequent infections ENDOCRINE: Absent: unexplained weight gain, unexplained weight loss, heat intolerance, cold intolerance NEUROLOGIC: Absent: headache, focal weakness or paresthesias, dizziness, unsteady gait, seizure, mental status changes, bladder or bowel incontinence PSYCHIATRIC: Absent: anxiety, depression, suicidal or homicidal ideation, hallucinations. *Physical Exam - Physical Exam Comments: 02/02/17 11:18 GENERAL: Well developed, well nourished. Awake and alert. No acute distress. HEENT: Normocephalic, atraumatic. PERRLA, EOMI. No conjunctival pallor. Sclera are non- icteric. Moist mucous membranes. Oropharynx is clear. NECK: Supple. Full ROM. No JVD. Carotid pulses 2+ and symmetric, without bruits. No thyromegaly. No lymphadenopathy. CARDIOVASCULAR: Regular rate and rhythm. No murmurs, rubs, or gallops. Distal pulses are 2+ and symmetric. PULMONARY: No evidence of respiratory distress. Lungs clear to auscultation bilaterally. No wheezing, rales or rhonchi. ABDOMINAL: Soft. Non-tender. Non-distended. No rebound or guarding. No organomegaly. Normoactive bowel sounds. Surgical scars well healed. MUSCULOSKELETAL Normal range of motion at all joints. No bony deformities or tenderness. No CVA tenderness. EXTREMITIES: No cyanosis. No clubbing. No edema. No calf tenderness. SKIN: Warm and dry. Normal capillary refill. No rashes. No jaundice. NEUROLOGICAL: Alert, awake, appropriate. Cranial nerves 2-12 intact. No deficits to light touch and temperature in face, upper extremities and lower extremities. No motor deficits in the in face, upper extremities and lower extremities. Normoreflexic in the upper and lower extremities. Normal speech. Toes are down- going bilaterally. Gait is normal without ataxia. PSYCHIATRIC: Cooperative. Good eye contact. Appropriate mood and affect. 02/02/17 11:36 ED Treatment Course - LABORATORY CBC & Chemistry Diagram: 02/02/17 11:20 02/02/17 11:20 Medical Decision Making - Medical Decision Making 02/02/17 11:27 The patient is well appearing and in no acute distress She suspects GERD Will obtain labs Will obtain RUQ 02/02/17 11:36 02/02/17 12:42 Labs noted including: Hyperbilirubinemia (mixed direct/indirect) Transaminitis, with AST predominance Elevated alkaline phosphatase Mild hyperglycemia Lipase pending Laboratory Tests 01/16/17 02/02/17 02/02/17 08:44 11:20 11:27 Random Glucose 126 H 167 H D Total Bilirubin 0.7 D 1.8 H D Direct Bilirubin 1.0 H AST 32 D 345 H D ALT 79 H 134 H D Alkaline Phosphatase 94 H 150 H D Ultrasound noted, without evidence of choledocholithiasis, and with some evidence of potential pancreatic inflammation I am concerned for possible retained stone with choledocholithiasis and resultant gallstone pancreatitis US does not have adequate sensitivity to exclude choledocynolithiasis Will begin aggressive fluid resuscitation Will administer antibiotics Lipase pending She will need MRCP and admission Will administer a single dose of Zosyn to cover for possible early cholangitis pending futher evaluation 02/02/17 12:53 Lipase noted, 5120 There is no available sheep and wheat farmer at the [facility] I suspect that MRCP Will confirm retained stone, and that she will require an ERCP The sheep and wheat farmer who will return next week, does not perform ERCPs For this reason, we'll transfer to the [facility] for further management Clinical impression: Pancreatitis Transaminitis Suspected choledocholithiasis Case discussed in detail with admitting provider including history, physical exam and ancillary studies. Admitting physician has assumed care for the patient, will follow all pending diagnostics and will complete the evaluation and treatment. 02/02/17 12:58 *DC/Admit/Observation/Transfer Diagnosis at time of Disposition: Pancreatitis, Elevated transaminase measurement - Discharge Dispostion Condition at time of disposition: Fair Admit: Yes
[2017-02-02 11:24] VITALS: BMI 26.9
[2017-02-02 11:32] LABS: PH,URINE 5.5 (4.5-8); URINE APPEARANCE Clear; URINE BILIRUBIN Negative (NEGATIVE); URINE BLOOD Trace-intact (NEGATIVE); URINE GLUCOSE (UA) Negative (NEGATIVE); URINE KETONE Negative (NEGATIVE); URINE LEUK ESTERASE Trace (NEGATIVE); URINE NITRITE Negative (NEGATIVE); URINE PROTEIN Negative (NEGATIVE); URINE UROBILINOGEN 0.2 E.U/dl (0.2-1.0)
[2017-02-02 11:32] LABS: BASOPHIL 0.4 % (0-2.0); EOSINOPHIL 0.4 % (0-4.5); MCH 27.5 pg (25.7-33.7); MCHC 33.2 g/dl (32.0-36.0); MEAN CELL VOLUME 82.9 fl (80-96); MEAN PLT VOLUME 9.6 fl (7.5-11.1); NEUTROPHILS 82.3 % (42.8-82.8); PLATELET COUNT 261 K/MM3 (134-434); RDW 12.1 % (11.6-15.6); WHITE BLOOD COUNT 9.3 K/mm3 (4.0-10.0)
[2017-02-02] MEDS ORDERED: MAG HYDROX/AL HYDROX/SIMETH 355 ML ORAL.SUSP PO ONE (11:36)
[2017-02-02] MEDS ORDERED: FAMOTIDINE 20 MG/50 ML IVPB 20 MG in PREMIX 50 IV ONE (11:36)
[2017-02-02] MEDS ORDERED: FAMOTIDINE 20 MG/50 ML IVPB 50 ML IVPB ONE (11:41)
[2017-02-02] MEDS ORDERED: MAG HYDROX/AL HYDROX/SIMETH 30 ML UNIT-DOSE CUP ONE (11:41)
[2017-02-02 11:42] LABS: URINE COLOR AMBER
[2017-02-02 11:49] LABS: ALBUMIN 4.3 g/dl (3.5-5.0); ALK PHOS 150 U/L (32-92); ANION GAP 9 (8-16); BILIRUBIN,TOTAL 1.8 mg/dl (0.2-1.0); CALCIUM 9.5 mg/dl (8.4-10.2); CO2 23 mmol/L (22-28); CREATININE 0.6 mg/dl (0.6-1.3); GLUCOSE,RANDOM 167 mg/dl (74-106); SGPT/ALT 134 U/L (10-40); TOT PROT 7.1 g/dl (6.4-8.3)
[2017-02-02 12:29] LABS: SGOT/AST 345 U/L (10-42)
[2017-02-02] MEDS ORDERED: PIPERACILLIN/TAZOB 4.5 GM 4.5 GM in DEXTROSE 5%-WATER 100 ML IVPB ONE (12:34)
[2017-02-02] MEDS ORDERED: SODIUM CHLORIDE 1,000 ML IV STA (12:39)
[2017-02-02] MEDS ORDERED: SODIUM CHLORIDE 1,000 ML IV SCH ×4 (13:00→22:00)
--- NOTE | 2017-02-02 13:01 | HP ---
CHIEF COMPLAINT: epigastric pain PCP: HISTORY OF PRESENT ILLNESS: 41 year old F with PMH gallstone pancreatitis s/p cholecystectomy 01/14 presents to ED with c/o epigastric pain that radiates to back. Pain is 8/10 and burning in nature. She states "It feels similar to last time, but less severe." Pt denies eating anything prior to the pain starting. She took her normal dose of Protonix this morning after the burning began, without symptom relief. At that time she felt it was best to come to the ED for further evaluation. ER course was notable for: (1) Lipase 5120 (2) Total Bili 1.8, Direct Bili 1.0 (3) Transaminitis - AST 345, ALT 134, ALP 150 Recent Travel: No PAST MEDICAL HISTORY: pancreatitis, cholecystitis PAST SURGICAL HISTORY: cholecystectomy 01/14/17, 2007 Social History: Lives at home with son and . Works as a pharmacist. Smoking:none Alcohol:none Drugs:none Family History: Both parents living. Mother - HTN. Father IDDM, MA, stents x 2 Allergies: None No Known Allergies Allergy (Verified 02/02/17 11:15) HOME MEDICATIONS: Home Medications Medication Instructions Recorded Pantoprazole Sodium [Protonix] 40 mg PO DAILY #30 tablet. 01/16/17 Docusate Sodium [Colace -] 100 mg PO PRN PRN 02/02/17 REVIEW OF SYSTEMS CONSTITUTIONAL: Absent: fever, chills, diaphoresis, generalized weakness, malaise, loss of appetite, weight change HEENT: Absent: rhinorrhea, nasal congestion, throat pain, throat swelling, difficulty swallowing, mouth swelling, ear pain, eye pain, visual changes CARDIOVASCULAR: Absent: chest pain, syncope, palpitations, irregular heart rate, lightheadedness , peripheral edema RESPIRATORY: Absent: cough, shortness of breath, dyspnea with exertion, orthopnea, wheezing, stridor, hemoptysis GASTROINTESTINAL:abdominal pain Absent: abdominal distension, nausea, vomiting, diarrhea, constipation, melena, hematochezia GENITOURINARY: Absent: dysuria, frequency, urgency, hesitancy, hematuria, flank pain, genital pain MUSCULOSKELETAL: Absent: myalgia, arthralgia, joint swelling, back pain, neck pain SKIN: Absent: rash, itching, pallor HEMATOLOGIC/IMMUNOLOGIC: Absent: easy bleeding, easy bruising, lymphadenopathy, frequent infections ENDOCRINE: Absent: unexplained weight gain, unexplained weight loss, heat intolerance, cold intolerance NEUROLOGIC: Absent: headache, focal weakness or paresthesias, dizziness, unsteady gait, seizure, mental status changes, bladder or bowel incontinence PSYCHIATRIC: Absent: anxiety, depression, suicidal or homicidal ideation, hallucinations. PHYSICAL EXAMINATION Vital Signs - 24 hr 02/02/17 11:12 Temperature 98.4 F Pulse Rate 105 H Respiratory 18 Rate Blood Pressure 135/79 O2 Sat by Pulse 100 Oximetry (%) GENERAL: Awake, alert, and fully oriented, in no acute distress. HEAD: Normal with no signs of trauma. EYES: Pupils equal, round and reactive to light, extraocular movements intact, sclera anicteric, conjunctiva clear. No lid lag. EARS, NOSE, THROAT: Ears normal, nares patent, oropharynx clear without exudates. Moist mucous membranes. NECK: Normal range of motion, supple without lymphadenopathy, JVD, or masses. LUNGS: Breath sounds equal, clear to auscultation bilaterally. No wheezes, and no crackles. No accessory muscle use. HEART: Regular rate and rhythm, normal S1 and S2 without murmur, rub or gallop. ABDOMEN: Soft, nontender, not distended, normoactive bowel sounds, no guarding, no rebound, no masses. No hepatomegaly or splenomegaly. MUSCULOSKELETAL: Normal range of motion at all joints. No bony deformities or tenderness. No CVA tenderness. UPPER EXTREMITIES: 2+ pulses, warm, well-perfused. No cyanosis. No clubbing. No peripheral edema. LOWER EXTREMITIES: 2+ pulses, warm, well-perfused. No calf tenderness. No peripheral edema. NEUROLOGICAL: Cranial nerves II-XII intact. Normal speech. Normal gait. PSYCHIATRIC: Cooperative. Good eye contact. Appropriate mood and affect. SKIN: Warm, dry, normal turgor, no rashes noted, normal capillary refill, surgical incision sites to umbilicus, right flank healing appropriately Laboratory Results - last 24 hr 02/02/17 02/02/17 02/02/17 11:20 11:20 11:27 WBC 9.3 RBC 4.72 Hgb 13.0 Hct 39.2 MCV 82.9 MCHC 33.2 RDW 12.1 Plt Count 261 MPV 9.6 Neutrophils % 82.3 D Lymphocytes % 11.6 D Monocytes % 5.3 Eosinophils % 0.4 Basophils % 0.4 Sodium 132 L Potassium 3.4 L Chloride 100 Carbon Dioxide 23 D Anion Gap 9 BUN 10 Creatinine 0.6 Creat Clearance w eGFR > 60 Random Glucose 167 H D Calcium 9.5 Total Bilirubin 1.8 H D Direct Bilirubin AST 345 H D ALT 134 H D Alkaline Phosphatase 150 H D Total Protein 7.1 Albumin 4.3 Lipase DIRECT BILI 1.0 Urine Color Farhana Urine Appearance Clear Urine pH 5.5 Ur Specific Marcellus 1.010 Urine Protein Negative Urine Glucose (UA) Negative Urine Ketones Negative Urine Blood Trace-intact Urine Nitrite Negative Urine Bilirubin Negative Urine Urobilinogen 0.2 e.u/dl Ur Leukocyte Esterase Trace Urine HCG, Qual Negative ASSESSMENT/PLAN: 41 year old female with c/o burning epigastric pain that radiates to the back. Admitted to floor with recurrent pancreatitis. Plan: 1. Pancreatitis - Lipase 5120 - trend - MRCP to evaluate for choledocholithiasis - covering with Zosyn for possible cholangitis - change home Protonix to IV - Dilaudid 1mg q4 PRN for pain - GI consult for possible ERCP 2. F/E/N - start LR @ 83/hr - keep NPO for pancreatic rest and possible procedure - monitor electrolytes, replete as needed 3. PPX - SCDs - Start Lovenox 40mg daily Dispo: admit to med surg FULL CODE
[2017-02-02] MEDS ORDERED: PIPERACILLIN/TAZOBACTAM 4.5 GM VIAL IVPB ONE (13:05)
[2017-02-02] MEDS ORDERED: DOCUSATE SODIUM 100 MG CAPSULE (FP) PO PRN (13:08)
[2017-02-02] MEDS ORDERED: ZOLPIDEM TARTRATE 5 MG TABLET PO PRN (13:11)
[2017-02-02] MEDS ORDERED: ONDANSETRON 4 MG/2 ML VIAL IVPB PRN (13:11)
[2017-02-02] MEDS ORDERED: HYDROmorphone HCL CARPU-JECT 1 MG/1 ML DISP.SYRIN IVPB PRN (13:11)
[2017-02-02] MEDS ORDERED: ACETAMINOPHEN 325 MG TABLET (FP) PO PRN (13:11)
[2017-02-02] MEDS ORDERED: LACTATED RINGERS SOLUTION 1,000 ML IV SCH (13:15)
[2017-02-02] MEDS ORDERED: HYDROmorphone HCL CARPU-JECT 1 MG/1 ML DISP.SYRIN IVPUSH ONE (14:17)
[2017-02-02] MEDS ORDERED: HYDROmorphone HCL CARPU-JECT 2 MG/1 ML DISP.SYRIN ONE (14:18)
[2017-02-02] MEDS ORDERED: HYDROmorphone HCL CARPU-JECT 1 MG/1 ML DISP.SYRIN IVPB ONE (15:45)
[2017-02-02] MEDS: ONDANSETRON 4 MG/2 ML VIAL IVPB PRN (16:28)
--- NOTE | 2017-02-02 17:42 | HP ---
Admitting History and Physical - Primary Care Physician PCP: Steven Slaughter - Admission Chief Complaint: Abdominal pain History of Present Illness: Pt. with recent gallstone pancreatitis, s/p cholecystectomy 3 weeks ago, developed eigastric pain this AM, radiating towards the back. Pt went to [facility], found to have a new bout of pancreatitis. History Source: Patient, Significant Other (ER doctor) - Past Medical History Gastrointestinal: Yes: Pancreatitis (January 2017) ...LMP: 01/11/17 ...: No - Smoking History Smoking history: Never smoked - Alcohol/Substance Use Hx Alcohol Use: No Home Medications - Allergies Allergies/Adverse Reactions: Allergies Allergy/AdvReac Type Severity Reaction Status Date / Time No Known Allergies Allergy Verified 02/02/17 11:15 - Home Medications Home Medications: Ambulatory Orders Pantoprazole Sodium [Protonix] 40 mg PO DAILY #30 tablet. 01/16/17 Docusate Sodium [Colace -] 100 mg PO PRN PRN 02/02/17 Review of Systems - Review of Systems Constitutional: denies: Chills, Fever HENT: denies: Ear Discharge, Nasal Congestion, Throat Pain Cardiovascular: denies: Chest Pain, Edema, Palpitations, Shortness of Breath Respiratory: denies: Cough, SOB, SOB on Exertion, Wheezing Gastrointestinal: reports: Abdominal Pain (not now- s/p Dilaudid), Vomiting ( once). denies: Constipation, Diarrhea, Nausea Genitourinary: denies: Burning, Discharge Musculoskeletal: denies: Back Pain, Extremity Pain, Muscle Weakness Integumentary: denies: Bruising, Eczema Neurological: denies: Change in LOC, Change in Speech, Confusion, Headache, Incoordination, Numbness, Unsteady Gait Endocrine: denies: Excessive Sweating, Intolerance to Cold Hematology/Lymphatic: denies: Easily Bruised, Excessive Bleeding Psychiatric: denies: Anxiety, Depression Physical Examination Vital Signs: Vital Signs Temperature 97.2 F L 02/02/17 15:17 Pulse Rate 93 H 02/02/17 15:17 Respiratory Rate 18 02/02/17 15:17 Blood Pressure 115/68 02/02/17 15:17 O2 Sat by Pulse Oximetry (%) 97 02/02/17 15:02 Constitutional: Yes: No Distress, Calm Eyes: Yes: Conjunctiva Clear, EOM Intact, PERRL HENT: Yes: Normocephalic. No: Epistaxis Neck: Yes: Trachea Midline. No: Lymphadenopathy Cardiovascular: Yes: Regular Rate and Rhythm, S1, S2 Respiratory: Yes: Regular, CTA Bilaterally. No: Rales Gastrointestinal: Yes: Normal Bowel Sounds, Soft. No: Hepatomegaly, Pulsatile Mass, Tenderness, Tenderness, Epigastrium, Tenderness, Rebound, Vomiting ...Rectal Exam: Yes: Deferred Renal/: No: CVA Tenderness - Left, CVA Tenderness - Right Musculoskeletal: No: Back Pain, Joint Swelling Extremities: No: Cold, Cool Edema: No Integumentary: No: Bruising, Jaundice Neurological: Yes: Alert, Oriented, Cran Nerves II-XII Intact Labs: reviewed Imaging - Results Ultrasound: Report Reviewed Problem List - Problems (1) Recurrent acute pancreatitis Assessment/Plan: IVF Pain Medication. GI consult. Pt. is refusing MRCP; she states that is to tired now to go for MRCP; explained to pt. the benefits of MRPC and risks associated with retained stone in the CBD (including pancreatic cyst, pancreatic abccess, DM, sepsis, ); pt. is still refusing MRCP. Code(s): K85.90 - ACUTE PANCREATITIS WITHOUT NECROSIS OR INFECTION, UNSP (2) Gallstones Assessment/Plan: Hx/o gallstones Code(s): K80.20 - CALCULUS OF GALLBLADDER W/O CHOLECYSTITIS W/O OBSTRUCTION (3) History of cholecystectomy Assessment/Plan: in January 2017, with Dr. Harvey. Code(s): Z90.49 - ACQUIRED ABSENCE OF OTHER SPECIFIED PARTS OF DIGESTIVE TRACT Assessment/Plan AM labs
[2017-02-02] MEDS ORDERED: ONDANSETRON 4 MG/2 ML VIAL IVPB ONE ×2 (21:00→22:00)
[2017-02-02] MEDS: HYDROmorphone HCL CARPU-JECT 1 MG/1 ML DISP.SYRIN IVPB PRN (23:22)
[2017-02-03 00:14] LABS: ALBUMIN 3.4 g/dl (3.4-5.0); ALK PHOS 203 U/L (45-117); ANION GAP 9 (8-16); BILIRUBIN,TOTAL 1.8 mg/dL (0.2-1.0); CALCIUM 8.5 mg/dL (8.5-10.1); CO2 26 mmol/L (21-32); CREATININE 0.6 mg/dL (0.55-1.02); GLUCOSE,RANDOM 111 mg/dL (74-106); TOT PROT 6.2 g/dl (6.4-8.2)
[2017-02-03 00:16] LABS: SGOT/AST 602 U/L (15-37); SGPT/ALT 444 U/L (12-78)
[2017-02-03] MEDS: METRONIDAZOLE 500 MG PREMIXED 100 ML IVPB SCH ×3 (02:43→18:35)
[2017-02-03 08:18] LABS: BASOPHIL 0.2 % (0-2.0); EOSINOPHIL 1.2 % (0-4.5); MCH 28.2 pg (25.7-33.7); MCHC 34.4 g/dl (32.0-36.0); MEAN CELL VOLUME 82.1 fl (80-96); MEAN PLT VOLUME 9.9 fl (7.5-11.1); NEUTROPHILS 66.9 % (42.8-82.8); PLATELET COUNT 167 K/MM3 (134-434); RDW 13.1 % (11.6-15.6); WHITE BLOOD COUNT 5.3 K/mm3 (4.0-10.0)
[2017-02-03 08:38] LABS: ALBUMIN 3.1 g/dl (3.4-5.0); AMYLASE 383 U/L (25-115); ANION GAP 7 (8-16); CALCIUM 8.1 mg/dL (8.5-10.1); CO2 26 mmol/L (21-32); CREATININE 0.6 mg/dL (0.55-1.02); GLUCOSE,RANDOM 91 mg/dL (74-106); SGOT/AST 380 U/L (15-37); TOT PROT 5.6 g/dl (6.4-8.2)
[2017-02-03 08:41] LABS: ALK PHOS 196 U/L (45-117)
[2017-02-03 08:43] LABS: SGPT/ALT 401 U/L (12-78)
[2017-02-03] MEDS ORDERED: ENOXAPARIN NA (PORCINE) 40 MG/0.4 ML DISP.SYRIN SQ SCH (10:00)
[2017-02-03] MEDS ORDERED: CEFTRIAXONE 2 GM in DEXTROSE 5%-WATER - 100 ML IVPB SCH (10:00)
[2017-02-03] MEDS ORDERED: PANTOPRAZOLE SODIUM 100 ML IVPB SCH (10:00)
--- NOTE | 2017-02-03 10:17 | CON.GI ---
Consult Consult Specialty:: GI Referred by:: Dr. Steven Slaughter Reason for Consultation:: Pancreatitis - History of Present Illness Chief Complaint: I had pain yesterday morning History of Present Illness: 41F S/P laparoscopic cholecystectomy 01/14/17. She was noted to have cholelithiasis at that time with pancreatitis. Abdominal US and CT scan at that time revealed a slightly prominent CBD along with pancreatitis changes. MRCP was performed 01/11/17 however the patient refused to continue the study and MRCP images were limited. Liver chemistries were elevated including ALP/bilirubin. She currently states that she was in her USOH up until yesterday morning when she awoke with a lower chest/epigastric pain radiating to the back, remniiscent of the pain that occurred earlier this month. In the ER, labs revealed normal CBC, elevated amylase.lipase, elevated transaminases/ALP and bili of 1.8. Abdominal US was performed revealing a prominent head of the pancreas along with slightly prominent CBD. She was on NS @ 200cc per hour yesterday, she had complained of shortness of breath last night and it was therefore cur back to 100cc/hr. She also felt as though she wasn't able to undergo MRCP yesterday but now feels as though she is up to it. She currently denies any abdominal or chest pain. 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year[place] 1999 Home Medications - Allergies Allergies/Adverse Reactions: Allergies Allergy/AdvReac Type Severity Reaction Status Date / Time No Known Allergies Allergy Verified 02/02/17 11:15 - Home Medications Home Medications: Ambulatory Orders Pantoprazole Sodium [Protonix] 40 mg PO DAILY #30 tablet. 01/16/17 Docusate Sodium [Colace -] 100 mg PO PRN PRN 02/02/17 Family Disease History - Family Disease History Family Disease History: Other: Father (Alive: 72: DMII, CAD), Mother (Alive: 65 : HTN), Brother (1 bro: HTN), Son (1 Son: HTN) Other Family History: No family history of colorectal cancer or other GI malignancy Review of Systems - Review of Systems Constitutional: denies: Chills, Diaphoresis, Fever Cardiovascular: reports: Shortness of Breath (resolved). denies: Chest Pain Respiratory: denies: Cough Gastrointestinal: reports: Abdominal Pain (resolved) Physical Exam-GI Vital Signs: Vital Signs Temperature 98.0 F 02/03/17 06:00 Pulse Rate 92 H 02/03/17 06:00 Respiratory Rate 20 02/03/17 06:00 Blood Pressure 102/69 02/03/17 06:00 O2 Sat by Pulse Oximetry (%) 97 02/02/17 22:00 Constitutional: Yes: Calm Eyes: No: Sclera Icterus Cardiovascular: Yes: Tachycardia Respiratory: Yes: CTA Bilaterally Gastrointestinal Inspection: Yes: Scars (healed trochar scars). No: Distention ...Auscultate: Yes: Normoactive Bowel Sounds Edema: No Neurological: Yes: Alert, Oriented Labs: CBC, BMP 02/03/17 06:45 02/03/17 06:45 Imaging - Results Ultrasound: Report Reviewed Problem List - Problems (1) Gallstone pancreatitis Assessment/Plan: Now s/p cholecystectomy. Given previous imaging studies and current clinical picture, high suspicion for choledocholithiasis / passed CBD stone. I discussed this with Ms. Chong. As part of continued work-up and treatment, I advised: Continued IV hydration: NS @ 150cc/hr OK for clear liquids Ordered MRI with and without contrast along with MRCP to evaluate pancreatic parenchyma and exclude sequela of pancreatitis such as pseudocyst / early fluid collections along with evaluating the CBD I did discuss with her the possible need for ERCP to further evaluate the bile duct. We discussed potential risks of the procedure like but not limited to bleeding, perforation requiring surgery to repair, infection, sedation, pancreatitis, all of which could be potentially life threatening. She has agreed if it was felt to be clinically indicated. Monitor daily CBC/CMP Code(s): K85.10 - BILIARY ACUTE PANCREATITIS WITHOUT NECROSIS OR INFECTION
[2017-02-03] MEDS: cefTRIAXone 2 GM/100 ML BAG (PRE-DOCKED) IVPB SCH (10:31)
[2017-02-03] MEDS: SODIUM CHLORIDE 1,000 ML IV SCH (10:36)
[2017-02-03] MEDS ORDERED: ACETAMINOPHEN 325 MG TABLET (FP) PO PRN (11:28)
[2017-02-03] MEDS ORDERED: ALPRAZolam 0.25 MG TABLET PO ONE (11:30)
[2017-02-03] MEDS: HYDROmorphone HCL CARPU-JECT 1 MG/1 ML DISP.SYRIN IVPB PRN (11:54)
--- NOTE | 2017-02-03 11:54 | PN ---
Progress Note, Physician History of Present Illness: Pt. with less abd pain, occ. nausea. Pt w/o SOB, CP, palp. Pt. feels nervous about MRI, asking for "something" to calm her down. - Current Medication List Current Medications: Active Medications Acetaminophen (Tylenol -) 650 mg PO Q6H PRN PRN Reason: PAIN Ceftriaxone Sodium (Rocephin 2gm Ivpb (Pre-Docked)) 2 gm IVPB DAILY DAWNA Last Admin: 02/03/17 10:31 Dose: 2 gm Hydromorphone HCl (Dilaudid Injection -) 1 mg IVPB Q4H PRN PRN Reason: PAIN Last Admin: 02/02/17 23:22 Dose: 1 mg Metronidazole (Flagyl 500mg Premixed Ivpb -) 100 mls @ 100 mls/hr IVPB Q8H-IV DAWNA Last Admin: 02/03/17 10:33 Dose: 100 mls/hr Sodium Chloride (Normal Saline -) 1,000 mls @ 150 mls/hr IV ASDIR DAWNA Last Admin: 02/03/17 10:36 Dose: 150 mls/hr Ondansetron HCl (Zofran Injection) 4 mg IVPB Q8H PRN PRN Reason: NAUSEA AND/OR VOMITING Last Admin: 02/02/17 16:28 Dose: 4 mg - Objective Vital Signs: Vital Signs Temperature 98.0 F 02/03/17 06:00 Pulse Rate 92 H 02/03/17 06:00 Respiratory Rate 20 02/03/17 06:00 Blood Pressure 102/69 02/03/17 06:00 O2 Sat by Pulse Oximetry (%) 97 02/02/17 22:00 Constitutional: Yes: No Distress, Calm Cardiovascular: Yes: Regular Rate and Rhythm, S1, S2 Respiratory: Yes: Regular, CTA Bilaterally Gastrointestinal: Yes: Soft, Other (decreased BS). No: Tenderness, Tenderness, Rebound Edema: No Neurological: Yes: Alert, Oriented Labs: CBC, BMP 02/03/17 06:45 02/03/17 06:45 Problem List - Problems (1) Recurrent acute pancreatitis Assessment/Plan: IVF Pain Medication. GI consult appreciated- case was reviewed with Dr. Josselin Clayton. Pt. agreed to go for MRCP; Xanax before MRI Code(s): K85.90 - ACUTE PANCREATITIS WITHOUT NECROSIS OR INFECTION, UNSP (2) Gallstones Assessment/Plan: Hx/o gallstones Code(s): K80.20 - CALCULUS OF GALLBLADDER W/O CHOLECYSTITIS W/O OBSTRUCTION (3) History of cholecystectomy Assessment/Plan: in January 2017, with Dr. Harvey. Code(s): Z90.49 - ACQUIRED ABSENCE OF OTHER SPECIFIED PARTS OF DIGESTIVE TRACT
[2017-02-03] MEDS: ONDANSETRON 4 MG/2 ML VIAL IVPB PRN (13:36)
[2017-02-03] MEDS: ZOLPIDEM TARTRATE 5 MG TABLET PO PRN (22:59)
[2017-02-04] MEDS: METRONIDAZOLE 500 MG PREMIXED 100 ML IVPB SCH ×3 (02:21→17:43)
[2017-02-04] MEDS: SODIUM CHLORIDE 1,000 ML IV SCH ×2 (03:47→13:04)
[2017-02-04 08:31] LABS: ALBUMIN 3.2 g/dl (3.4-5.0); ANION GAP 8 (8-16); CALCIUM 8.4 mg/dL (8.5-10.1); CO2 27 mmol/L (21-32); CREATININE 0.6 mg/dL (0.55-1.02); GLUCOSE,RANDOM 118 mg/dL (74-106); SGOT/AST 122 U/L (15-37); SGPT/ALT 266 U/L (12-78)
[2017-02-04 08:33] LABS: ALK PHOS 197 U/L (45-117); BILIRUBIN,TOTAL 0.5 mg/dL (0.2-1.0)
[2017-02-04 08:35] LABS: BASOPHIL 0.5 % (0-2.0); EOSINOPHIL 5.1 % (0-4.5); MCHC 33.9 g/dl (32.0-36.0); MEAN CELL VOLUME 82.7 fl (80-96); MEAN PLT VOLUME 9.7 fl (7.5-11.1); NEUTROPHILS 56.7 % (42.8-82.8); PLATELET COUNT 175 K/MM3 (134-434); RDW 13.5 % (11.6-15.6); WHITE BLOOD COUNT 4.7 K/mm3 (4.0-10.0)
[2017-02-04] MEDS: cefTRIAXone 2 GM/100 ML BAG (PRE-DOCKED) IVPB SCH (10:18)
[2017-02-04] MEDS: HYDROmorphone HCL CARPU-JECT 1 MG/1 ML DISP.SYRIN IVPB PRN ×3 (11:02→23:23)
--- NOTE | 2017-02-04 11:23 | PN ---
Progress Note, Physician History of Present Illness: Pt. with less abd pain than at admission, still coming and going, better with medication. Pt w/o SOB, CP, palp. - Current Medication List Current Medications: Active Medications Acetaminophen (Tylenol -) 650 mg PO Q6H PRN PRN Reason: PAIN Ceftriaxone Sodium (Rocephin 2gm Ivpb (Pre-Docked)) 2 gm IVPB DAILY DAWNA Last Admin: 02/04/17 10:18 Dose: 2 gm Hydromorphone HCl (Dilaudid Injection -) 1 mg IVPB Q4H PRN PRN Reason: PAIN Last Admin: 02/04/17 11:02 Dose: 1 mg Metronidazole (Flagyl 500mg Premixed Ivpb -) 100 mls @ 100 mls/hr IVPB Q8H-IV DAWNA Last Admin: 02/04/17 09:10 Dose: 100 mls/hr Sodium Chloride (Normal Saline -) 1,000 mls @ 150 mls/hr IV ASDIR DAWNA Last Admin: 02/04/17 03:47 Dose: 150 mls/hr Ondansetron HCl (Zofran Injection) 4 mg IVPB Q8H PRN PRN Reason: NAUSEA AND/OR VOMITING Last Admin: 02/03/17 13:36 Dose: 4 mg Zolpidem Tartrate (Ambien -) 5 mg PO HS PRN Last Admin: 02/03/17 22:59 Dose: 5 mg - Objective Vital Signs: Vital Signs Temperature 98.3 F 02/04/17 08:02 Pulse Rate 84 02/04/17 11:16 Respiratory Rate 18 02/04/17 08:02 Blood Pressure 127/81 02/04/17 08:02 O2 Sat by Pulse Oximetry (%) 97 02/04/17 11:16 Constitutional: Yes: No Distress, Calm Cardiovascular: Yes: Regular Rate and Rhythm, S1, S2 Respiratory: Yes: Regular, CTA Bilaterally. No: Rales Gastrointestinal: Yes: Normal Bowel Sounds, Soft. No: Palpable Mass, Tenderness Edema: No Labs: CBC, BMP 02/04/17 07:00 02/04/17 07:00 - ....Imaging MRI: Report Reviewed Problem List - Problems (1) Recurrent acute pancreatitis Assessment/Plan: IVF Pt. on IV pain Medication. GI consult and f/u appreciated. Started on clear liquid diet. Code(s): K85.90 - ACUTE PANCREATITIS WITHOUT NECROSIS OR INFECTION, UNSP (2) Gallstones Code(s): K80.20 - CALCULUS OF GALLBLADDER W/O CHOLECYSTITIS W/O OBSTRUCTION (3) History of cholecystectomy Code(s): Z90.49 - ACQUIRED ABSENCE OF OTHER SPECIFIED PARTS OF DIGESTIVE TRACT Assessment/Plan AM labs. Dr. Coates will resume pt.'s care starting AM
--- NOTE | 2017-02-04 11:28 | CONSULT ---
Consult Consult Specialty:: Surgery Reason for Consultation:: Abdominal pain, pancreatitis - History of Present Illness Chief Complaint: Abdominal pain History of Present Illness: 41 female s/p cholecystectomy presents with several days of abdominal pain/back pain Denies fevers/chills No vomiting Noted to have elevated LFTs and lipase levels U/S and MRCP performed to look for choledocholithiasis- no CBD stones seen Patient's pain has since improved In addition, her LFTs and lipase levels have trended towards normal - History Source History Provided By: Patient Limitations to Obtaining History: No Limitations - Past Medical History Gastrointestinal: Yes: GERD, Pancreatitis (January 2017) Hepatobiliary: Yes: Cholelithiasis ...LMP: 01/11/17 ...: No - Past Surgical History Past Surgical History: Yes: Cholecystectomy (laparoscopic 01/14/17) - Alcohol/Substance Use Hx Alcohol Use: No History of Substance Use: reports: None - Smoking History Smoking history: Never smoked - Social History Usual Living Arrangement: With Spouse ADL: Independent 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 01/16/17 Docusate Sodium [Colace -] 100 mg PO PRN PRN 02/02/17 Family Disease History - Family Disease History Family Disease History: Other: Father (Alive: 72: DMII, CAD), Mother (Alive: 65 : HTN), Brother (1 bro: HTN), Son (1 Son: HTN) Other Family History: No family history of colorectal cancer or other GI malignancy Review of Systems - Review of Systems Constitutional: denies: Chills, Fever HENT: reports: No Symptoms Neck: reports: No Symptoms Cardiovascular: denies: Chest Pain Respiratory: denies: Cough Gastrointestinal: reports: Abdominal Pain. denies: Vomiting Neurological: denies: Change in LOC Pain Intensity: 3 Physical Exam Vital Signs: Vital Signs Temperature 98.3 F 02/04/17 08:02 Pulse Rate 84 02/04/17 11:16 Respiratory Rate 18 02/04/17 08:02 Blood Pressure 127/81 02/04/17 08:02 O2 Sat by Pulse Oximetry (%) 97 02/04/17 11:16 HENT: Yes: WNL Neck: Yes: Supple Cardiovascular: Yes: Regular Rate and Rhythm Respiratory: Yes: CTA Bilaterally Gastrointestinal: Yes: Soft. No: Distention, Tenderness, Tenderness, Rebound Extremities: Yes: WNL Neurological: Yes: Alert, Oriented Labs: CBC, BMP 02/04/17 07:00 02/04/17 07:00 Imaging - Results Ultrasound: Report Reviewed, Image Reviewed MRI: Report Reviewed, Image Reviewed Problem List - Problems (1) Gallstone pancreatitis Code(s): K85.10 - BILIARY ACUTE PANCREATITIS WITHOUT NECROSIS OR INFECTION (2) History of cholecystectomy Code(s): Z90.49 - ACQUIRED ABSENCE OF OTHER SPECIFIED PARTS OF DIGESTIVE TRACT (3) Pancreatitis Code(s): K85.90 - ACUTE PANCREATITIS WITHOUT NECROSIS OR INFECTION, UNSP Qualifiers: Pancreatitis type: unspecified pancreatitis type Assessment/Plan 41 female with pancreatitis S/P cholecystectomy Pain improved LFTs and lipase trending towards normal No CBD/retained stone seen on MRI- if was present, likely passed Diet as tolerated Follow LFTs/lipase levels No intervention needed at this time
[2017-02-04] MEDS: ONDANSETRON 4 MG/2 ML VIAL IVPB PRN (19:04)
--- NOTE | 2017-02-04 20:48 | PN ---
Progress Note (short form) - Note Progress Note: No abdominal pain ERCP deferred today by Dr. hull: MRI/MRCP revealed dilated cbd to 7mm with dilated intrahepatic, edema at the head of the pancreas consistent with mild pancreatitis. No choledocholithiasis seen Laboratory Tests 02/02/17 02/03/17 02/04/17 23:30 06:45 07:00 Total Bilirubin 1.8 H 1.0 D 0.5 D AST 602 H D 380 H D 122 H D ALT 444 H 401 H 266 H D Alkaline Phosphatase 203 H 196 H 197 H Total Protein 6.2 L 5.6 L 6.0 L Lipase 3297 H 629 H Suspect passed CBD stone Ms. Chong is hesitant to have ERCP performed Monitoring LFTs: if they remain elevated / start to rise / pain after advancing diet, I did explain to Ms. Chong and her that ERCP would still be needed to exclude retained stone / stone fragments in the CBD. Advancing to full liquids in AM Problem List - Problems (1) Gallstone pancreatitis Code(s): K85.10 - BILIARY ACUTE PANCREATITIS WITHOUT NECROSIS OR INFECTION
[2017-02-05] MEDS: ZOLPIDEM TARTRATE 5 MG TABLET PO PRN ×2 (01:13→22:28)
[2017-02-05] MEDS: SODIUM CHLORIDE 1,000 ML IV SCH (06:48)
[2017-02-05 07:25] LABS: ALBUMIN 2.9 g/dl (3.4-5.0); ANION GAP 10 (8-16); BILIRUBIN,TOTAL 0.4 mg/dL (0.2-1.0); CALCIUM 8.4 mg/dL (8.5-10.1); CO2 28 mmol/L (21-32); CREATININE 0.6 mg/dL (0.55-1.02); GLUCOSE,RANDOM 95 mg/dL (74-106); SGOT/AST 46 U/L (15-37); SGPT/ALT 172 U/L (12-78); TOT PROT 5.7 g/dl (6.4-8.2)
[2017-02-05 07:26] LABS: ALK PHOS 163 U/L (45-117)
--- NOTE | 2017-02-05 10:59 | PN ---
GI Progress Note Subjective: No abdominal pain Tolerated full liquids this morning - Objective Vital Signs: Vital Signs Temperature 98.1 F 02/05/17 06:00 Pulse Rate 72 02/05/17 06:00 Respiratory Rate 20 02/05/17 06:00 Blood Pressure 124/69 02/05/17 06:00 O2 Sat by Pulse Oximetry (%) 95 02/04/17 21:00 Constitutional: Calm Eyes: No: Sclera Icterus Cardiovascular: Yes: Regular Rate and Rhythm Respiratory: Yes: CTA Bilaterally Gastrointestinal Inspection: No: Distention ...Auscultate: Yes: Normoactive Bowel Sounds ...Palpate: No: Tenderness Edema: No Neurological: Yes: Alert, Oriented Labs: CBC, BMP 02/04/17 07:00 02/05/17 05:40 Laboratory Tests 02/05/17 05:40 Lipase 315 Hepatic Panel Total Bilirubin 0.4 mg/dL (0.2-1.0) 02/05/17 05:40 Direct Bilirubin 1.0 mg/dl (0.0-0.2) H 02/02/17 11:27 AST 46 U/L (15-37) H D 02/05/17 05:40 ALT 172 U/L (12-78) H D 02/05/17 05:40 Alkaline Phosphatase 163 U/L (45-117) H 02/05/17 05:40 Albumin 2.9 g/dl (3.4-5.0) L 02/05/17 05:40 Problem List - Problems (1) Gallstone pancreatitis Assessment/Plan: Clinically asymptomatic with improving LFTs. No stone seen on MRCP. Suspect passed CBD stone Patient opted for chance at conservative measures / observation as opposed to ERCP Monitor clinically Advancing diet D/C IV fluids If worsening LFTs/pain I did explain to Ms. Chong again that it would be prudent to have ERCP performed to exclude retained CBD stone AM labs Code(s): K85.10 - BILIARY ACUTE PANCREATITIS WITHOUT NECROSIS OR INFECTION
[2017-02-05] MEDS: HYDROmorphone HCL CARPU-JECT 1 MG/1 ML DISP.SYRIN IVPB PRN ×2 (11:17→16:33)
--- NOTE | 2017-02-05 15:43 | PN ---
Progress Note (short form) - Note Progress Note: No acute events No pain Tolerating diet AVSS Abd soft, NT, ND WBC 4.7 K/mm3 (4.0-10.0) 02/04/17 07:00 RBC 4.12 M/mm3 (3.60-5.2) 02/04/17 07:00 Hgb 11.6 GM/dL (10.7-15.3) 02/04/17 07:00 Hct 34.1 % (32.4-45.2) 02/04/17 07:00 MCV 82.7 fl (80-96) 02/04/17 07:00 MCHC 33.9 g/dl (32.0-36.0) 02/04/17 07:00 RDW 13.5 % (11.6-15.6) 02/04/17 07:00 Plt Count 175 K/MM3 (134-434) 02/04/17 07:00 MPV 9.7 fl (7.5-11.1) 02/04/17 07:00 Neutrophils % 56.7 % (42.8-82.8) 02/04/17 07:00 Lymphocytes % 32.5 % (8-40) D 02/04/17 07:00 Monocytes % 5.2 % (3.8-10.2) 02/04/17 07:00 Eosinophils % 5.1 % (0-4.5) H D 02/04/17 07:00 Basophils % 0.5 % (0-2.0) 02/04/17 07:00 Sodium 142 mmol/L (136-145) 02/05/17 05:40 Potassium 3.8 mmol/L (3.5-5.1) 02/05/17 05:40 Chloride 104 mmol/L (98-107) 02/05/17 05:40 Carbon Dioxide 28 mmol/L (21-32) 02/05/17 05:40 Anion Gap 10 (8-16) 02/05/17 05:40 BUN 2 mg/dL (7-18) L* D 02/05/17 05:40 Creatinine 0.6 mg/dL (0.55-1.02) 02/05/17 05:40 Creat Clearance w eGFR > 60 (>60) 02/05/17 05:40 POC Glucometer 89 UNITS (()) 02/03/17 06:50 Random Glucose 95 mg/dL (74-106) 02/05/17 05:40 Calcium 8.4 mg/dL (8.5-10.1) L 02/05/17 05:40 Total Bilirubin 0.4 mg/dL (0.2-1.0) 02/05/17 05:40 Direct Bilirubin 1.0 mg/dl (0.0-0.2) H 02/02/17 11:27 AST 46 U/L (15-37) H D 02/05/17 05:40 ALT 172 U/L (12-78) H D 02/05/17 05:40 Alkaline Phosphatase 163 U/L (45-117) H 02/05/17 05:40 Total Protein 5.7 g/dl (6.4-8.2) L 02/05/17 05:40 Albumin 2.9 g/dl (3.4-5.0) L 02/05/17 05:40 Total Amylase 383 U/L (25-115) H 02/03/17 06:45 Lipase 315 U/L (73-393) 02/05/17 05:40 Diet as tolerated No surgical intervention Problem List - Problems (1) Gallstone pancreatitis Code(s): K85.10 - BILIARY ACUTE PANCREATITIS WITHOUT NECROSIS OR INFECTION (2) History of cholecystectomy Code(s): Z90.49 - ACQUIRED ABSENCE OF OTHER SPECIFIED PARTS OF DIGESTIVE TRACT (3) Pancreatitis Code(s): K85.90 - ACUTE PANCREATITIS WITHOUT NECROSIS OR INFECTION, UNSP Qualifiers: Pancreatitis type: unspecified pancreatitis type
--- NOTE | 2017-02-05 19:06 | PN ---
Progress Note, Physician Chief Complaint: pancreatitis History of Present Illness: PAtient was able to have solid diet today and tolerated it well. She is complaining of loose stools without blood or mucousities - Current Medication List Current Medications: Active Medications Acetaminophen (Tylenol -) 650 mg PO Q6H PRN PRN Reason: PAIN Ondansetron HCl (Zofran Injection) 4 mg IVPB Q8H PRN PRN Reason: NAUSEA AND/OR VOMITING Last Admin: 02/04/17 19:04 Dose: 4 mg Oxycodone HCl (Roxicodone -) 5 mg PO Q4H PRN PRN Reason: PAIN Pantoprazole Sodium (Protonix -) 40 mg PO DAILY DAWNA Zolpidem Tartrate (Ambien -) 5 mg PO HS PRN Last Admin: 02/05/17 01:13 Dose: 5 mg - Objective Vital Signs: Vital Signs Temperature 98.2 F 02/05/17 13:57 Pulse Rate 90 02/05/17 13:57 Respiratory Rate 20 02/05/17 13:57 Blood Pressure 124/69 02/05/17 06:00 O2 Sat by Pulse Oximetry (%) 95 02/05/17 09:00 Constitutional: Yes: No Distress, Calm Eyes: Yes: Conjunctiva Clear, EOM Intact HENT: Yes: Atraumatic, Normocephalic Neck: Yes: Supple, Trachea Midline Cardiovascular: Yes: Regular Rate and Rhythm, S1, S2 Respiratory: Yes: Regular, CTA Bilaterally Gastrointestinal: Yes: Normal Bowel Sounds, Soft, Abdomen, Obese. No: Hepatomegaly, Splenomegaly, Tenderness, Tenderness, Epigastrium ...Rectal Exam: Yes: Deferred Breast(s): Yes: WNL Musculoskeletal: Yes: WNL Extremities: Yes: WNL Edema: No Neurological: Yes: Alert, Oriented Psychiatric: Yes: Alert, Oriented Labs: CBC, BMP 02/04/17 07:00 02/05/17 05:40 Problem List - Problems (1) Gallstone pancreatitis Assessment/Plan: MRCP done during this admission showed dilatation of the billiary ducts but no stones Code(s): K85.10 - BILIARY ACUTE PANCREATITIS WITHOUT NECROSIS OR INFECTION (2) History of cholecystectomy Assessment/Plan: for cholelithiasis complicated by pancreatitis, patient conitinues to improve tolerating po solid diet Code(s): Z90.49 - ACQUIRED ABSENCE OF OTHER SPECIFIED PARTS OF DIGESTIVE TRACT
[2017-02-05] MEDS: oxyCODONE HCL 5 MG TABLET PO PRN (21:41)
[2017-02-06 07:27] LABS: BASOPHIL 0.2 % (0-2.0); MCH 28.4 pg (25.7-33.7); MCHC 34.2 g/dl (32.0-36.0); MEAN CELL VOLUME 83.1 fl (80-96); MEAN PLT VOLUME 9.1 fl (7.5-11.1); NEUTROPHILS 55.1 % (42.8-82.8); PLATELET COUNT 192 K/MM3 (134-434); RDW 13.2 % (11.6-15.6); WHITE BLOOD COUNT 5.8 K/mm3 (4.0-10.0)
[2017-02-06] MEDS: oxyCODONE HCL 5 MG TABLET PO PRN (08:11)
[2017-02-06 08:33] LABS: ALBUMIN 3.3 g/dl (3.4-5.0); ALK PHOS 157 U/L (45-117); ANION GAP 8 (8-16); BILIRUBIN,DIRECT 0.2 mg/dL (0.0-0.2); BILIRUBIN,TOTAL 0.4 mg/dL (0.2-1.0); CALCIUM 8.9 mg/dL (8.5-10.1); CO2 30 mmol/L (21-32); CREATININE 0.6 mg/dL (0.55-1.02); GLUCOSE,RANDOM 102 mg/dL (74-106); SGOT/AST 80 U/L (15-37); SGPT/ALT 161 U/L (12-78); TOT PROT 6.2 g/dl (6.4-8.2)
[2017-02-06] MEDS ORDERED: PANTOPRAZOLE 40 MG TABLET (FP) PO SCH (10:00)
[2017-02-06 12:46] VITALS: TEMP 98.4
--- NOTE | 2017-02-06 14:13 | DS ---
Physical Examination Vital Signs: Vital Signs Temperature 98.4 F 02/06/17 09:00 Pulse Rate 99 H 02/06/17 09:00 Respiratory Rate 18 02/06/17 09:00 Blood Pressure 107/69 02/06/17 09:00 O2 Sat by Pulse Oximetry (%) 95 02/05/17 09:00 Constitutional: Yes: Well Nourished, No Distress, Calm Eyes: Yes: Conjunctiva Clear, EOM Intact HENT: Yes: Atraumatic, Normocephalic Neck: Yes: Supple, Trachea Midline Cardiovascular: Yes: Regular Rate and Rhythm, S1, S2 Respiratory: Yes: Regular, CTA Bilaterally Gastrointestinal: Yes: Normal Bowel Sounds, Soft, Abdomen, Obese, Tenderness ( minimal epigastric) ...Rectal Exam: Yes: Deferred Breast(s): Yes: WNL Extremities: No: Calf Tenderness Peripheral Pulses WNL: Yes Integumentary: Yes: WNL Wound/Incision: Yes: Other (healed incision sites) Neurological: Yes: Alert Labs: CBC, BMP 02/06/17 06:00 02/06/17 06:35 Discharge Summary Reason For Visit: EPIGASTRIC PAIN RADIATES TO BACK Current Active Problems Gallstone pancreatitis (Acute) Gallstones (Acute) History of cholecystectomy (Acute) Pancreatitis (Acute) Recurrent acute pancreatitis (Acute) Transaminitis (Acute) Hospital Course: Pateint admitted with acute pancreatitis post billiary stone , feeling betetr , treated conservatively, has persisting diarrhea will be discharged to day home Condition: Fair - Home Medications Comprehensive Discharge Medication List: Ambulatory Orders Pantoprazole Sodium [Protonix] 40 mg PO DAILY #30 tablet. 01/16/17 Docusate Sodium [Colace -] 100 mg PO PRN PRN 02/02/17
[2017-02-06 14:53] VITALS: BP 132/73; PULSE 69
== END 2017-02-06 19:18 | disposition home or self-care (01) | DRG 440 ==
LOC: FER 11:11 → J6S 15:02
PROVIDERS: ADMIT Internal Medicine; ATTEND Internal Medicine
DX: K85.10 Biliary acute pancreatitis without necrosis or infection (principal); K21.9 Gastro-esophageal reflux disease without esophagitis
CPT/HCPCS: 36415; 74183-TC; 76705-TC; 80053; 80076; 81003; 82150; 82248; 83690; 84703; 85025; 99283-25; A9576